=== PATIENT | male | born 1990 | race Caucasian/White ===

== ENCOUNTER 2017-04-01 21:35 | Emergency (ER) | payer MEDICAID, SELFPAY ==
[2017-04-01 21:43] VITALS: BP 145/85; PULSE 88; RESP 16; TEMP 36.4; O2SAT 100; BMI 37.4
--- NOTE | 2017-04-01 23:01 | HMH.EDGENADL ---
ED Disposition Clinical Impression: Conjunctivitis Qualifiers: Conjunctivitis type: acute Acute conjunctivitis type: unspecified Laterality: left Qualified Code(s): H10.32 - Unspecified acute conjunctivitis, left eye Disposition: Home, Self-Care Condition on Discharge: Good Instructions: DI for Conjunctivitis Additional Instructions: see dr stern [facility] Referrals: Tierra Correa PA [Primary Care Provider] - - Critical Care Critical Care Time: No Attestation: On 04/01/17, the high probability of a clinically significant, sudden or life threatening deterioration of the following system(s) required my full and direct attention, intervention and personal management. The time I documented below is in addition to time spent performing reported procedures but includes the following listed in this critical care notation. Medical Decision Making Vital Signs: 04/01/17 21:43 Temperature 97.6 F Temperature Source Temporal Artery Scan Pulse Rate [Brachial] 88 Respiratory Rate 16 Blood Pressure [Right Arm] 145/85 Blood Pressure Mean [Right Arm] 105 Blood Pressure Source [Right Arm] Automatic Cuff 02 Sat by Pulse Oximetry 100 Oxygen Delivery Method Room Air - Dylon Inquiry Pt receiving controlled substance: No General Adult HPI - General Chief complaint: PAIN Stated complaint: POSSIBLE PINK EYE Time Seen by Provider: 04/01/17 22:30 Mode of Arrival: Ambulatory Source of Information: Patient, Relative Limitations: No Limitations Description of Symptoms (Recalled from ER Triage Doc. by RN): PAIN IN EYE, H/A - History of Present Illness HPI narrative: pt with hx of possible conjunctivitis lt eye - treated and saw dr stern and now with same sx - no contact lens - Onset (ago): day(s) Location: eyes Severity: moderate - Related Data Home Medications Medication Instructions Recorded Confirmed No Known Home Medications [No 04/01/17 04/01/17 Known Home Medications] Allergies Allergy/AdvReac Type Severity Reaction Status Date / Time No Known Allergies Allergy Verified 04/01/17 21:53 [facility] History I have reviewed the patient's past medical history: Yes - *Social History Alcohol Intake: never - Psychiatric History Expresses thoughts of harming self/others: None Suicide Plan Description: No Plan ROS Obtained: Yes All systems reviewed & no additional complaints - Constitutional Denies fever(s) - Eyes Reports other (no contacts ), Denies change in vision, Denies discharge, Denies loss of vision - ENT Denies nasal discharge - Cardiovascular Denies chest pain - Respiratory Denies cough - Musculoskeletal Denies joint pain - Integumentary/Breasts Denies rash Physical Exam - General General appearance: alert, in no apparent distress - Head Head exam: atraumatic - Eye Eye exam: Present: PERRL, EOMI, conjunctival redness, conjunctival injection. Absent: scleral icterus - ENT ENT exam: Present: normal oropharynx - Respiratory Respiratory exam: Absent: respiratory distress - Cardiovascular Cardiovascular exam: Present: regular rate - Neurological Exam Neurological exam: Present: alert, oriented X3, CN II-XII intact - Psychiatric Psychiatric exam: Present: normal affect - Skin Skin exam: Present: warm - Lymphatic Lymphatic Findings: no adenopathy
--- NOTE | 2017-04-01 23:05 | ED_ITS ---
ED Disposition Clinical Impression: Conjunctivitis Qualifiers: Conjunctivitis type: acute Acute conjunctivitis type: unspecified Laterality: left Qualified Code(s): H10.32 - Unspecified acute conjunctivitis, left eye Disposition: Home, Self-Care Condition on Discharge: Good Instructions: DI for Conjunctivitis Additional Instructions: see dr stern [facility] Referrals: Tierra Correa PA [Primary Care Provider] - - Critical Care Critical Care Time: No Attestation: On 04/01/17, the high probability of a clinically significant, sudden or life threatening deterioration of the following system(s) required my full and direct attention, intervention and personal management. The time I documented below is in addition to time spent performing reported procedures but includes the following listed in this critical care notation. Medical Decision Making Vital Signs: 04/01/17 21:43 Temperature 97.6 F Temperature Source Temporal Artery Scan Pulse Rate [Brachial] 88 Respiratory Rate 16 Blood Pressure [Right Arm] 145/85 Blood Pressure Mean [Right Arm] 105 Blood Pressure Source [Right Arm] Automatic Cuff 02 Sat by Pulse Oximetry 100 Oxygen Delivery Method Room Air - Dylon Inquiry Pt receiving controlled substance: No General Adult HPI - General Chief complaint: PAIN Stated complaint: POSSIBLE PINK EYE Time Seen by Provider: 04/01/17 22:30 Mode of Arrival: Ambulatory Source of Information: Patient, Relative Limitations: No Limitations Description of Symptoms (Recalled from ER Triage Doc. by RN): PAIN IN EYE, H/A - History of Present Illness HPI narrative: pt with hx of possible conjunctivitis lt eye - treated and saw dr stern and now with same sx - no contact lens - Onset (ago): day(s) Location: eyes Severity: moderate - Related Data Home Medications Medication Instructions Recorded Confirmed No Known Home Medications [No 04/01/17 04/01/17 Known Home Medications] Allergies Allergy/AdvReac Type Severity Reaction Status Date / Time No Known Allergies Allergy Verified 04/01/17 21:53 [facility] History I have reviewed the patient's past medical history: Yes - *Social History Alcohol Intake: never - Psychiatric History Expresses thoughts of harming self/others: None Suicide Plan Description: No Plan ROS Obtained: Yes All systems reviewed & no additional complaints - Constitutional Denies fever(s) - Eyes Reports other (no contacts ), Denies change in vision, Denies discharge, Denies loss of vision - ENT Denies nasal discharge - Cardiovascular Denies chest pain - Respiratory Denies cough - Musculoskeletal Denies joint pain - Integumentary/Breasts Denies rash Physical Exam - General General appearance: alert, in no apparent distress - Head Head exam: atraumatic - Eye Eye exam: Present: PERRL, EOMI, conjunctival redness, conjunctival injection. Absent: scleral icterus - ENT ENT exam: Present: normal oropharynx - Respiratory Respiratory exam: Absent: respiratory distress - Cardiovascular Cardiovascular exam: Present: regular rate - Neurological Exam Neurological exam: Present: alert, oriented X3, CN II-XII intact - Psychiatric Psychiatric exam: Present:
== END 2017-04-01 23:19 | disposition home or self-care (01) ==
PROVIDERS: Emergency Provider Emergency Medicine; Family Provider Physician Assistant; PCP Physician Assistant
DX: H10.32 Unspecified acute conjunctivitis, left eye (principal)
CPT/HCPCS: 99282

== ENCOUNTER 2017-05-01 14:39 | Emergency (ER) | payer MEDICAID, SELFPAY ==
[2017-05-01 15:13] VITALS: BP 123/83; PULSE 96; RESP 20; TEMP 37.3; O2SAT 100; BMI 39.1
[2017-05-01 15:24] LABS: UTC Influenza A Antigen Negative (Negative); UTC Influenza B Antigen Positive (Negative)
--- NOTE | 2017-05-01 15:38 | HMH.EDUTC ---
[facility] [place] Disposition Clinical Impression: Influenza B Disposition: Home, Self-Care Condition on Discharge: Good Instructions: DI for Influenza -- Adult Additional Instructions: * Too late to start tamiflu. Most effective when started within 48 hours of symptoms onset. * Lots of rest * Increase fluids, water, gatorade, powerade, pedialyte if /toddler/child * Monitor Temp. Tylenol every 4 hours as needed no more then 5 times a day or 4000mg in 24 hours and/or ibuprofen every 6 hours as needed no more then 3200mg in 24 hours (as long as your primary care doctor has told you that it is ok to take both) for fever/aches/pain. ER if fever no less than 101 despite tylenol and Ibuprofen. * Follow up if fevers are worsening instead of continuing to improve. * OTC cold/flu/sinus medication is ok but pick one. Do not take multiple different ones as they have similar ingredients and you can overdose on cold medication. * You (or your child) are contagious until no fever, aches, chills x 24 hours without medication for symptoms. Referrals: Tierra Correa PA [Primary Care Provider] - (IMMEDIATELY for new or worsening symptoms, improvement followed by suddenly feeling worse OR no noticeable improvement over the next 48-72 hours. 911 for difficulty breathing ) Time of Disposition: 15:49 Medical Decision Making Vital Signs: 05/01/17 15:13 Temperature 99.1 F Temperature Source Temporal Artery Scan Pulse Rate [Right Brachial] 96 H Respiratory Rate 20 Blood Pressure [Right Arm] 123/83 Blood Pressure Mean [Right Arm] 96 Blood Pressure Source [Right Arm] Automatic Cuff Blood Pressure Position [Right Arm] Sitting 02 Sat by Pulse Oximetry 100 Oxygen Delivery Method Room Air - Lab Data Lab results reviewed: Yes: I reviewed the patient's lab results. Lab Results 05/01/17 15:13: Influenza Type A Ag Negative, Influenza Type B Ag Positive A - Dylon Inquiry Pt receiving controlled substance: No [facility] [place] HPI - General Stated complaint: runny nose head ache Time Seen by Provider: 05/01/17 15:38 Mode of Arrival: Ambulatory Source of Information: Patient Limitations: No Limitations Description of Symptoms (Recalled from Triage Doc. by RN): PT C/O FLU-LIKE SYMPTOMS HEENT Symptoms (Recalled from RN notes): No Resp Symptoms (Recalled from RN notes): Yes (FLU-LIKE SYMPTOMS) Skin Symptoms (Recalled from RN notes): No MS Symptoms (Recalled from RN notes): No Functional Status (Recalled from RN notes): N/A - History of Present Illness Provider Complaint: c/o sore throat primarily but then reports accompanied with bodyaches, chills, nonprod cough, rhinorrhea, nasal congestion for nearly one week . No known sick contacts. Hasn't taken or tried anything. Denies SOA, wheezing, difficulty breathing. - Related Data Home Medications Medication Instructions Recorded Confirmed No Known Home Medications [No 04/01/17 04/01/17 Known Home Medications] Allergies Allergy/AdvReac Type Severity Reaction Status Date / Time No Known Allergies Allergy Verified 04/01/17 21:53 - Worker's Comp Is this a Worker's Comp case?: No [facility] History I have reviewed the patient's past medical history: Yes (denies PMHx) Medical History: Denies:: Cancer, Diabetes Mellitus Type 1, Diabetes Mellitus Type 2, Hypertension, MRSA Other Surgeries: Yes: No Previous Surgery Amputation: No Fractures: No - *Social History Smoking Status: Current every day smoker Tobacco Type: cigarettes Alcohol Intake: never - Psychiatric History Expresses thoughts of harming self/others: None Suicide Plan Description: No Plan ROS Obtained: Yes Systems reviewed as appropriate & no additional complaints - Constitutional Constitutional: Reports as per HPI, Reports chills, Reports fatigue, Reports fever(s) (subjective, they seem better ), Denies poor appetite - Eyes Eyes: Denies eye discharge, Denies eye pain - ENT Ears, Nose, Mouth, and Throat: Repo
--- NOTE | 2017-05-01 15:47 | ED_ITS ---
[facility] [place] Clinical Impression: Influenza B Disposition: Home, Self-Care Condition on Discharge: Good Instructions: DI for Influenza -- Adult Additional Instructions: * Too late to start tamiflu. Most effective when started within 48 hours of symptoms onset. * Lots of rest * Increase fluids, water, gatorade, powerade, pedialyte if /toddler/child * Monitor Temp. Tylenol every 4 hours as needed no more then 5 times a day or 4000mg in 24 hours and/or ibuprofen every 6 hours as needed no more then 3200mg in 24 hours (as long as your primary care doctor has told you that it is ok to take both) for fever/aches/pain. ER if fever no less than 101 despite tylenol and Ibuprofen. * Follow up if fevers are worsening instead of continuing to improve. * OTC cold/flu/sinus medication is ok but pick one. Do not take multiple different ones as they have similar ingredients and you can overdose on cold medication. * You (or your child) are contagious until no fever, aches, chills x 24 hours without medication for symptoms. Referrals: Tierra Correa PA [Primary Care Provider] - (IMMEDIATELY for new or worsening symptoms, improvement followed by suddenly feeling worse OR no noticeable improvement over the next 48-72 hours. 911 for difficulty breathing ) Time of Disposition: 15:49 Medical Decision Making Vital Signs: 05/01/17 15:13 Temperature 99.1 F Temperature Source Temporal Artery Scan Pulse Rate [Right Brachial] 96 H Respiratory Rate 20 Blood Pressure [Right Arm] 123/83 Blood Pressure Mean [Right Arm] 96 Blood Pressure Source [Right Arm] Automatic Cuff Blood Pressure Position [Right Arm] Sitting 02 Sat by Pulse Oximetry 100 Oxygen Delivery Method Room Air - Lab Data Lab results reviewed: Yes: I reviewed the patient's lab results. Lab Results 05/01/17 15:13: Influenza Type A Ag Negative, Influenza Type B Ag Positive A - Dylon Inquiry Pt receiving controlled substance: No [facility] [place]PI - General Stated complaint: runny nose head ache Time Seen by Provider: 05/01/17 15:38 Mode of Arrival: Ambulatory Source of Information: Patient Limitations: No Limitations Description of Symptoms (Recalled from Triage Doc. by RN): PT C/O FLU-LIKE SYMPTOMS HEENT Symptoms (Recalled from RN notes): No Resp Symptoms (Recalled from RN notes): Yes (FLU-LIKE SYMPTOMS) Skin Symptoms (Recalled from RN notes): No MS Symptoms (Recalled from RN notes): No Functional Status (Recalled from RN notes): N/A - History of Present Illness Provider Complaint: c/o sore throat primarily but then reports accompanied with bodyaches, chills, nonprod cough, rhinorrhea, nasal congestion for nearly one week . No known sick contacts. Hasn't taken or tried anything. Denies SOA, wheezing, difficulty breathing. - Related Data Home Medications Medication Instructions Recorded Confirmed No Known Home Medications [No 04/01/17 04/01/17 Known Home Medications] Allergies Allergy/AdvReac Type Severity Reaction Status Date / Time No Known Allergies Allergy Verified 04/01/17 21:53 - Worker's Comp Is this a Worker's Comp case?: No [facility] History I have reviewed the patient's past medical history: Yes (denies PMHx) Medical History: Denies:: Cancer, Diabetes Mellitus Type 1, Diabetes Mellitus Type 2, Hypertension, MRSA Other Surgeries: Yes: No Previous Surgery Amputation: No
[2017-05-01 15:51] VITALS: BP 123/83; PULSE 96; RESP 20; TEMP 37.3; O2SAT 100
== END 2017-05-01 15:52 | disposition home or self-care (01) ==
PROVIDERS: Emergency Provider Nurse Practitioner Family; Family Provider Physician Assistant; PCP Physician Assistant
DX: J11.1 Influenza due to unidentified influenza virus with other respiratory manifestations (principal); F17.210 Nicotine dependence, cigarettes, uncomplicated
CPT/HCPCS: 87804; 99201

== ENCOUNTER → 2017-11-08 13:21 | Outpatient (CLI) | payer MEDICAID, SELFPAY ==
--- NOTE | 2017-11-08 13:23 | XR_ITS ---
EXAM: XR lumbar spine 2-3V HISTORY: ITS.REASON: pain ORDERING PHYSICIAN: Aliza Hays PATIENT AGE: 27 years COMPARISON: None FINDINGS: Normal alignment. No fracture or dislocation. No lytic or blastic change. No significant degenerative change. The disc spaces are preserved. There is degenerative disc disease at T12-L1 with endplate hypertrophic change IMPRESSION: 1. No acute finding. 2. Degenerative disc disease T12-L1
--- NOTE | 2017-11-08 13:23 | XR_ITS ---
EXAM: XR thoracic spine 3V HISTORY: ITS.REASON: pain Comparison: None FINDINGS: Normal alignment. No fracture or dislocation. No lytic or blastic change. No significant degenerative change. The disc spaces are preserved. There is slight loss of height anteriorly at T11 and T12 which appears chronic with mild degenerative disc disease at T10-11 and T11-T12 IMPRESSION: 1. No acute finding. 2. Mild wedging of T11 and T12 which may be chronic with degenerative disc disease.
== END ==
PROVIDERS: PCP Nurse Practitioner Family; Visit Provider Nurse Practitioner Family
DX: M54.5 Low back pain (principal); M54.6 Pain in thoracic spine
CPT/HCPCS: 72072; 72100

== ENCOUNTER → 2019-05-18 17:19 | Outpatient (CLI) | payer OTHER, SELFPAY ==
[2019-05-18 18:11] LABS: Basophils # 0.1 K/mm3 (0-0.2); Basophils % 0.7 % (0.1-2.0); Eosinophils # 0.2 K/mm3 (0.0-0.4); Eosinophils % 2.7 % (0.1-12.0); Hematocrit 47.9 % (42.0-52.0); Hemoglobin 15.8 g/dL (14.1-18.0); Lymphocytes # 2.4 K/mm3 (0.7-4.5); Lymphocytes % 35.4 % (10-50); Mean Corpuscular HGB Conc 32.9 g/dL (31.8-35.4); Mean Corpuscular Hemoglobin 28.6 pg (27.0-31.2); Mean Corpuscular Volume 86.9 fl (80-94); Mean Platelet Volume 8.6 fl (7.4-10.4); Monocytes # 0.3 K/mm3 (0.1-1.0); Neutrophils # 3.8 K/mm3 (1.8-7.8); Neutrophils % 56.3 % (37.0-80.0); Platelet Count 297 K/mm3 (142-424); Red Blood Count 5.51 M/mm3 (4.60-6.20); Red Cell Distribution Width 13.8 % (11.5-17.5); White Blood Count 6.7 K/mm3 (4.8-10.8)
[2019-05-18 18:43] LABS: Chloride 100 mmol/L (98-107); Sodium 142 mmol/L (136-145)
[2019-05-18 18:45] LABS: Blood Urea Nitrogen 12 mg/dl (9-20); Estimated Glomerular Filt Rate 135 ml/min (>60); GFR (African American) 164 ML/MIN (>60)
[2019-05-18 18:46] LABS: Alanine Aminotransferase 18 U/L (12-78); Albumin Level 4.9 g/dl (3.5-5.0); Albumin/Globulin Ratio 1.8 (1.1-1.8); Alkaline Phosphatase 62 U/L (38-126); Aspartate Amino Transferase 24 U/L (17-59); Bilirubin,Total 0.4 mg/dl (0.2-1.3); Calcium 10.2 mg/dl (8.4-10.2); Carbon Dioxide 27 mmol/L (22.0-30.0); Chol/HDL Ratio 3.6 (1-3.5); Cholesterol 170 mg/dl (140-200); Globulin 2.7 g/dL (1.3-3.2); Glucose 70 mg/dl (74-100); HDL Cholesterol 47 mg/dl (40-60); Total Protein,Serum 7.6 g/dl (6.3-8.2)
[2019-05-18 18:57] LABS: Direct LDL Cholesterol 79.23 mg/dL (100-129)
[2019-05-18 19:02] LABS: Triglycerides 424 mg/dl (30-150)
[2019-05-18 19:19] LABS: Thyroid Stimulating Hormone 1.43 uIU/mL (0.465-4.68)
[2019-05-18 19:46] LABS: Hemoglobin A1C 5.2 % (4.0-6.0)
== END ==
PROVIDERS: Visit Provider Physician Assistant
DX: E11.9 Type 2 diabetes mellitus without complications (principal)
CPT/HCPCS: 80053; 80061; 83036; 84436; 84443; 85025

== ENCOUNTER → 2019-05-25 12:36 | Outpatient (CLI) | payer OTHER, SELFPAY | PROVIDERS: PCP Physician Assistant; Visit Provider Physician Assistant | DX: R55 Syncope and collapse (principal) | CPT/HCPCS: 95816 ==

== ENCOUNTER → 2019-06-26 11:20 | Outpatient (CLI) | payer OTHER, SELFPAY | PROVIDERS: PCP Physician Assistant; Visit Provider Physician Assistant | DX: R40.0 Somnolence (principal); R06.83 Snoring; R53.83 Other fatigue | CPT/HCPCS: 95806 ==

== ENCOUNTER → 2019-07-16 08:59 | Outpatient (CLI) | payer OTHER, SELFPAY | PROVIDERS: PCP Physician Assistant; Visit Provider Internal Medicine Cardiovascular Disease | DX: R55 Syncope and collapse (principal) ==

== ENCOUNTER 2019-08-05 19:33 | Emergency (ER) | payer OTHER, SELFPAY ==
[2019-08-05 19:35] VITALS: BP 140/87; PULSE 83; RESP 21; TEMP 36.7; O2SAT 100; BMI 39.1
--- NOTE | 2019-08-05 19:37 | HMH.EDUTC ---
[facility] [place] Clinical Impression: Sprain of left foot Qualifiers: Encounter type: initial encounter Qualified Code(s): S93.602A - Unspecified sprain of left foot, initial encounter Disposition: Home, Self-Care Condition on Discharge: Good Instructions: DI for Foot Sprain Additional Instructions: Rest the extremity, apply ice for 15 minutes as tolerated three or four times per day, Wear the mer wrap for compression, Elevate the extremity as tolerated while you are resting. Take ibuprofen for pain. I sent in a prescription to your pharmacy. Follow up with Dr. Bar. I put in a referral but you need to call her office and schedule an appointment. Follow up with your regular doctor. GO TO THE ER FOR ANY WORSENING SYMPTOMS Prescriptions: Ibuprofen [Ibuprofen 600mg Tablet] 600 mg PO Q6HP PRN #30 tab PRN Reason: Mild Pain Transmission Status: Received by [id number] Referrals: Tierra Correa PA [Primary Care Provider] - Forms: Work/School Release Time of Disposition: 20:20 Medical Decision Making - Medical Records Medical records reviewed: No: I reviewed the patient's medical records. - Dylon Inquiry Pt receiving controlled substance: No Vital Signs: 08/05/19 19:35 08/05/19 20:25 Temperature 98.1 F 98.1 F Temperature Source Oral Oral Pulse Rate 83 Pulse Rate [Radial] 83 Respiratory Rate 21 21 Blood Pressure 140/87 Blood Pressure [Right Arm] 140/87 Blood Pressure Mean [Right Arm] 104 Blood Pressure Source Automatic Cuff Blood Pressure Source [Right Arm] Automatic Cuff Blood Pressure Position Sitting Blood Pressure Position [Right Arm] Sitting 02 Sat by Pulse Oximetry 100 Oxygen Delivery Method Room Air Room Air - Radiology Data #1 Image(s): Foot/Toes Image Reviewed: Yes I reviewed the patient's radiology image, Yes I have reviewed radiologist's interpretation Preliminary Findings: No Fracture Seen PROCEDURE: XR ANKLE LT MIN 3V CLINICAL INDICATION: injury Posttraumatic pain the COMPARISON: No exams were available for comparison FINDINGS: No fracture or dislocation. No lytic or blastic change. There is normal mineralization. The joint spaces are well-preserved. No significant degenerative/arthritic changes. No erosive changes evident. Other findings:None. IMPRESSION: No acute findings. Dictated by: Rashad Fry MD 08/06/2019 06:00 Electronically signed by Rashad Fry MD in [place] 08/06/2019 06:00 [facility] [place] HPI - General Stated complaint: AO fall injury to L ankle 08/04/190 Time Seen by Provider: 08/05/19 19:45 - History of Present Illness Provider Complaint: He states that last night at work he slipped in some disinfectant off the bottom of a biohazard bag and twisted his left ankle. He states that thru out today his foot and ankle began to hurt worse. He states that walking on the foot makes his pain worse. - Related Data Previous Rx's Medication Instructions Recorded Ibuprofen [Ibuprofen 600mg 600 mg PO Q6HP PRN #30 tab 08/05/19 Tablet] Allergies Allergy/AdvReac Type Severity Reaction Status Date / Time No Known Allergies Allergy Verified 05/21/19 10:47 [facility] History - Hepatitis A Screen Attestation statement:: This patient has been screened for Hepatitis A risk factors. I have reviewed the patient's past medical history: Yes Medical History: Reports:: Palpitations Denies:: Cancer, Diabetes Mellitus Type 1, Diabetes Mellitus Type 2, Hypertension, MRSA Other Medical History: Reports: Arthritis, Other Comment: Gout Other Surgeries: Yes: No Previous Surgery Amputation: No Fractures: No - Social History Smoking Status: Current some day smoker Tobacco Type: cigarettes # Packs/Day (cigarettes): 1 Alcohol Intake: never Alcohol Intake Frequency:: a few times a week Substance Use Type: denies use Occupational Status: employed Family Hx:: Cancer, Hypertension Comment: Mother-HTN ROS Obt
--- NOTE | 2019-08-05 19:47 | XR_ITS ---
PROCEDURE: XR ANKLE LT MIN 3V CLINICAL INDICATION: injury Posttraumatic pain the COMPARISON: No exams were available for comparison FINDINGS: No fracture or dislocation. No lytic or blastic change. There is normal mineralization. The joint spaces are well-preserved. No significant degenerative/arthritic changes. No erosive changes evident. Other findings:None. IMPRESSION: No acute findings. Dictated by: Rashad Fry MD 08/06/2019 06:00 Electronically signed by Rashad Fry MD in [place] 08/06/2019 06:00
[2019-08-05 20:25] VITALS: BP 140/87; PULSE 83; RESP 21; TEMP 36.7; O2SAT 100
== END 2019-08-05 20:26 | disposition home or self-care (01) ==
PROVIDERS: Emergency Provider Nurse Practitioner Family; PCP Physician Assistant
DX: S93.602A Unspecified sprain of left foot, initial encounter (principal); W01.0XXA Fall on same level from slipping, tripping and stumbling without subsequent striking against object, initial encounter; F17.210 Nicotine dependence, cigarettes, uncomplicated
CPT/HCPCS: 73610; 99201

== ENCOUNTER 2019-11-27 15:41 | Emergency (ER) | payer OTHER, SELFPAY ==
--- NOTE | 2019-11-27 15:52 | XR_ITS ---
PROCEDURE: XR ANKLE LT MIN 3V CLINICAL INDICATION: PAIN COMPARISON: CR Ankle L from 10/27/2018 FINDINGS: No fracture or dislocation IMPRESSION: No acute findings. Dictated by: Rashad Fry MD 11/27/2019 18:55 Rashad Fry MD in [place] 11/27/2019 18:55
[2019-11-27 16:16] VITALS: BP 133/91; PULSE 84; RESP 20; TEMP 36.6; O2SAT 99; BMI 39.1
--- NOTE | 2019-11-27 16:55 | HMH.EDUTC ---
[facility] [place] Clinical Impression: Left ankle strain Qualifiers: Encounter type: initial encounter Qualified Code(s): S96.912A - Strain of unspecified muscle and tendon at ankle and foot level, left foot, initial encounter Disposition: Home, Self-Care Condition on Discharge: Good Instructions: How To Perform RICE (Rest, Ice, Compress, Elevate), How to Apply an Zeb Wrap, Preventing the Spread of Coronavirus Discharge Instructions Additional Instructions: You was tested for COVID 19 and given handout with instructions for self Quarantine and Self isolation make sure to follow instructions Call back to the [facility] on Saturday or Saturday to see if your test results are back and the result *weight bearing as tolerated *RICE, Rest the extremity, Ice 15-20 minutes 3-4 times daily, Compress- wear the zeb wrap as discussed as much as possible to help reduce swelling and pain, Elevate the extremity when at rest *Zeb wrap is for support and help control swelling, use it except in the shower. Be sure that is not to tight but not to loose either *Elevate when resting *Ibuprofen every 6-8 hours as needed for pain an inflammation. If need something more can take Tylenol in between doses of Ibuprofen to help Immediately follow up with your family doctor for new or worsening of symptoms, or no noticeable improvement over the next 3-5 days Follow up with Family doctor if you continue to have pain in your ankle Call back to [facility] later today for the official reading of your xray Follow up with Dr Bar if your ankle pain continued Straight to ER if any life threatening symptoms Referrals: Tierra Correa PA [Primary Care Provider] - Forms: Work/School Release Time of Disposition: 17:07 Medical Decision Making - Dylon Inquiry Pt receiving controlled substance: No Dylon was queried for this patient: No Vital Signs: 11/27/19 16:16 Temperature 97.8 F Temperature Source Oral Pulse Rate [Right Brachial] 84 Respiratory Rate 20 Blood Pressure [Right Arm] 133/91 H Blood Pressure Mean [Right Arm] 105 Blood Pressure Source [Right Arm] Automatic Cuff Blood Pressure Position [Right Arm] Sitting 02 Sat by Pulse Oximetry 99 Oxygen Delivery Method Room Air Orders (Tests/Meds): ORDERS Category Date Time Status XR ankle LT min 3V Stat Exams 11/27/19 15:52 Taken Covid-19 Nasal PCR [facility] 11/27/19 16:21 Received - Radiology Data #1 Image(s): Ankle Image Reviewed: Yes I reviewed the patient's radiology image Preliminary Findings: No Fracture [place]en [facility] - General Stated complaint: AO fell 11/22/19 swollen L ankle/covid test Time Seen by Provider: 11/27/19 17:01 Mode of Arrival: Ambulatory Source of Information: Patient Limitations: No Limitations Description of Symptoms (Recalled from Triage Doc. by RN): PATIENT C/O LEFT ANKLE PAIN SINCE LAST WEEK. ALSO REQUESTING A COVID TEST FOR WORK, DENIES ANY SYMPTOMS HEENT Symptoms (Recalled from RN notes): No Resp Symptoms (Recalled from RN notes): No Skin Symptoms (Recalled from RN notes): No MS Symptoms (Recalled from RN notes): Yes Functional Status (Recalled from RN notes): WNL - History of Present Illness Provider Complaint: Patient states that he has been working alot on his feet and for the last week he has been having pain on and off in his left ankle denies known injury States that also he is starting a new job and wanting to get a COVID test before he can start - Related Data Allergies Allergy/AdvReac Type Severity Reaction Status Date / Time No Known Allergies Allergy Verified 05/21/19 10:47 - Worker's Comp Is this a Worker's Comp case?: No [facility] History - Hepatitis A Screen Drug use history?: No High risk sexual behaviors?: No History of sexually transmitted infection?: No Currently employed?: No Childcare worker?: No Do you have indoor plumbing?: Yes Do you have electricity?: Yes Attestation statement:: This patient has been screened f
[2019-11-27 17:20] VITALS: BP 133/91; PULSE 84; RESP 20; TEMP 36.6; O2SAT 99
[2019-11-29 09:19] LABS: Covid-19 Nasal PCR Sendout UK Not Detected
== END 2019-11-27 17:23 | disposition home or self-care (01) ==
PROVIDERS: Emergency Provider Nurse Practitioner; PCP Physician Assistant
DX: S96.912A Strain of unspecified muscle and tendon at ankle and foot level, left foot, initial encounter (principal); W01.0XXA Fall on same level from slipping, tripping and stumbling without subsequent striking against object, initial encounter; F17.210 Nicotine dependence, cigarettes, uncomplicated; Z03.818 Encounter for observation for suspected exposure to other biological agents ruled out
CPT/HCPCS: 73610; 99201; 99202; U0003

== ENCOUNTER 2019-11-28 20:17 | Emergency (ER) | payer OTHER, SELFPAY ==
[2019-11-28 20:30] VITALS: BP 129/97; PULSE 80; RESP 16; TEMP 36.8; O2SAT 100; BMI 39.1
--- NOTE | 2019-11-28 20:34 | HMH.EDUTC ---
[facility] [place] Disposition Clinical Impression: Ankle pain Qualifiers: Chronicity: unspecified Laterality: left Qualified Code(s): M25.572 - Pain in left ankle and joints of left foot Disposition: Home, Self-Care Condition on Discharge: Good Instructions: DI for Ankle Pain, How to Apply an Zeb Wrap Additional Instructions: You may purchase ankle brace at [facility] Continue to wear zeb wrap and if no improvement follow up with Family Doctor or Dr Bar if no improvement or any worsening of symptoms Straight to ER if any life threatening symptoms Return if needed Referrals: Tierra Correa PA [Primary Care Provider] - As needed Forms: Work/School Release Medical Decision Making - Dylon Inquiry Pt receiving controlled substance: No Dylon was queried for this patient: No Vital Signs: 11/28/19 20:30 Temperature 98.2 F Temperature Source Oral Pulse Rate [Right Brachial] 80 Respiratory Rate 16 Blood Pressure [Right Arm] 129/97 H Blood Pressure Mean [Right Arm] 107 Blood Pressure Source [Right Arm] Automatic Cuff Blood Pressure Position [Right Arm] Sitting 02 Sat by Pulse Oximetry 100 Oxygen Delivery Method Room Air [facility] [place] HPI - General Stated complaint: Pain Left ankle Time Seen by Provider: 11/28/19 20:34 Mode of Arrival: Ambulatory Source of Information: Patient Limitations: No Limitations Description of Symptoms (Recalled from Triage Doc. by RN): PATIENT C/O LEFT FOOT PAIN. WAS HERE LAST NIGHT FOR SAME COMPLAINT. REQUESTING WORK NOTE HEENT Symptoms (Recalled from RN notes): No Resp Symptoms (Recalled from RN notes): No Skin Symptoms (Recalled from RN notes): No MS Symptoms (Recalled from RN notes): Yes Functional Status (Recalled from RN notes): WNL - History of Present Illness Provider Complaint: Patient states that he was in [facility] last night for same complaint and had xrays done and no fracture. States that today he didnt go to work and his work note only covered yesterday so he came back in today to see if he could get a work note for today Denies new injury - Related Data Allergies Allergy/AdvReac Type Severity Reaction Status Date / Time No Known Allergies Allergy Verified 05/21/19 10:47 - Worker's Comp Is this a Worker's Comp case?: No [facility] History - Hepatitis A Screen Drug use history?: No High risk sexual behaviors?: No History of sexually transmitted infection?: No Currently employed?: No Childcare worker?: No Do you have indoor plumbing?: Yes Do you have electricity?: Yes Attestation statement:: This patient has been screened for Hepatitis A risk factors. I have reviewed the patient's past medical history: Yes Medical History: Reports:: Palpitations Denies:: Cancer, Diabetes Mellitus Type 1, Diabetes Mellitus Type 2, Hypertension, MRSA Other Medical History: Reports: Arthritis, Other Comment: Gout Other Surgeries: Yes: No Previous Surgery Amputation: No Fractures: No - Social History Smoking Status: Current every day smoker Tobacco Type: cigarettes # Packs/Day (cigarettes): 1 Alcohol Intake: never Alcohol Intake Frequency:: a few times a week Substance Use Type: denies use Occupational Status: other Housing: house Family Hx:: Cancer, Hypertension Comment: Mother-HTN ROS Obtained: Yes All systems reviewed & no additional complaints, Yes Systems reviewed as appropriate & no additional complaints - Constitutional Constitutional: Reports system reviewed and no additional complaints, except as docu - Eyes Eyes: Reports system reviewed and no additional complaints, except as docu - Gastrointestinal Gastrointestingal: Reports: system reviewed and no additional complaints, except as docu - Musculoskeletal Musculoskeletal: Reports system reviewed and no additional complaints, except as docu - Integumentary/Breasts Skin/Breast: Reports system reviewed and no additional complaints, except as docu - Allergic/Immunologic Comments: Pain in left ankle Physical Exam
[2019-11-28 20:50] VITALS: BP 129/97; PULSE 80; RESP 16; TEMP 36.8; O2SAT 100
== END 2019-11-28 20:52 | disposition home or self-care (01) ==
PROVIDERS: Emergency Provider Nurse Practitioner; PCP Physician Assistant
DX: M25.572 Pain in left ankle and joints of left foot (principal)
CPT/HCPCS: 99201

== ENCOUNTER 2019-12-30 02:41 | Emergency (ER) | payer OTHER, SELFPAY ==
[2019-12-30 02:50] VITALS: BP 116/80; PULSE 87; RESP 14; TEMP 37.1; O2SAT 100; BMI 49.4
--- NOTE | 2019-12-30 02:57 | XR_ITS ---
PROCEDURE: XR ANKLE LT MIN 3V CLINICAL INDICATION: edema Pain and swelling COMPARISON: CR Ankle L from 10/27/2018 CR XR ANKLE LT MIN 3V from 08/05/2019 CR XR ANKLE LT MIN 3V from 11/27/2019 FINDINGS: There is mild generalized soft tissue swelling. No bony or joint abnormality evident. On the mortise view, there is a small hyperdensity along the lateral aspect of the heel which could represent a foreign body either upon or within the skin. This measures approximately 2 mm. IMPRESSION: Soft tissue swelling. No acute bony findings. Small density along the lateral aspect of the heel which could be a foreign body either upon or within the skin. Dictated by: Rashad Fry MD 12/30/2019 04:58 Rashad Fry MD in [place] 12/30/2019 04:58
--- NOTE | 2019-12-30 03:04 | HMH.EDLOEX ---
ED Disposition Clinical Impression: Ankle sprain and strain Disposition: Home, Self-Care Condition on Discharge: Good Instructions: Sprain Additional Instructions: call podiatry for follow up Referrals: Tierra Correa PA [Primary Care Provider] - - Critical Care Critical Care Time: No Attestation: On 12/30/19, the high probability of a clinically significant, sudden or life threatening deterioration of the following system(s) required my full and direct attention, intervention and personal management. The time I documented below is in addition to time spent performing reported procedures but includes the following listed in this critical care notation. Medical Decision Making - Medical Records Medical records reviewed: Yes: I reviewed the patient's medical records. - Dylon Inquiry Pt receiving controlled substance: No Vital Signs: 12/30/19 02:50 Temperature 98.7 F Temperature Source Oral Pulse Rate [Right] 87 Respiratory Rate 14 Blood Pressure [Right Arm] 116/80 Blood Pressure Mean [Right Arm] 92 Blood Pressure Source [Right Arm] Automatic Cuff Blood Pressure Position [Right Arm] Sitting 02 Sat by Pulse Oximetry 100 Oxygen Delivery Method Room Air - Lab Data Lab results reviewed: Yes: I reviewed the patient's lab results. Orders (Tests/Meds): ED MEDICATIONS Discontinued Medications Generic Name Dose Route Start Last Admin Trade Name Freq PRN Reason Stop Dose Admin Acetaminophen/Codeine Phosphate 1 parish 12/30/19 02:57 Acetaminophen 300mg W/Codeine 30mg Take Home Pack (6) PO 12/30/19 02:58 ONCE ONE ORDERS Category Date Time Status Ankle XR - Left minimum 3 Views [XR ankle LT min 3V] Exams 12/30/19 02:57 Taken Stat - Radiology Data #1 Image(s): Ankle Image Reviewed: Yes I reviewed the patient's radiology image Preliminary Findings: No Fracture Seen Lower Extremity Injury HPI - General Chief Complaint: Extremity Injury, Lower Stated Complaint: left foot swollen and painful Time Seen by Provider: 12/30/19 03:05 Mode of Arrival: Ambulatory Source of Information: Patient, Spouse, Medical Record Limitations: No Limitations Description of Symptoms (Recalled from ER Triage Doc. by RN): Pt has pain and swelling to left ankle no known injury - History of Present Illness HPI Narrative: swelling to lt ankle w/o trauma MD complaint: ankle injury Onset (ago): day(s) Injury: Left: ankle Type of Injury: unknown Place: home Severity: moderate Context: walking Associated symptoms: able to partially bear weight Other symptoms: none - Related Data Allergies Allergy/AdvReac Type Severity Reaction Status Date / Time No Known Allergies Allergy Verified 05/21/19 10:47 [facility] History - Hepatitis A Screen Drug use history?: No High risk sexual behaviors?: No History of sexually transmitted infection?: No Currently employed?: No Childcare worker?: No Do you have indoor plumbing?: Yes Do you have electricity?: Yes Attestation statement:: This patient has been screened for Hepatitis A risk factors. I have reviewed the patient's past medical history: Yes Medical History: Reports:: Palpitations Denies:: Cancer, Diabetes Mellitus Type 1, Diabetes Mellitus Type 2, Hypertension, MRSA Other Medical History: Reports: Arthritis, Other Comment: Gout Other Surgeries: Yes: No Previous Surgery Amputation: No Fractures: No - Social History Smoking Status: Light tobacco smoker Tobacco Type: smokeless tobacco # Packs/Day (cigarettes): 1 Alcohol Intake: never Alcohol Intake Frequency:: a few times a week Substance Use Type: denies use Occupational Status: employed Housing: house Family Hx:: Cancer, Hypertension Comment: Mother-HTN ROS Obtained: Yes All systems reviewed & no additional complaints - Constitutional Constitutional: Denies fever(s) - Eyes Eyes: Denies change in vision - ENT Ears, Nose, Mouth, and Throat: Denies sore throat
[2019-12-30 03:17] VITALS: BP 122/78; PULSE 84; RESP 16; TEMP 37.1; O2SAT 100
== END 2019-12-30 03:19 | disposition home or self-care (01) ==
PROVIDERS: Emergency Provider Emergency Medicine; PCP Physician Assistant
DX: S93.402A Sprain of unspecified ligament of left ankle, initial encounter (principal); X50.1XXA Overexertion from prolonged static or awkward postures, initial encounter; F17.290 Nicotine dependence, other tobacco product, uncomplicated
CPT/HCPCS: 73610; 99282

== ENCOUNTER → 2019-12-30 19:36 | Outpatient (CLI) | payer OTHER, SELFPAY ==
[2019-12-30 20:19] LABS: Uric Acid 10.3 mg/dl (3.5-8.5)
== END ==
PROVIDERS: Visit Provider Nurse Practitioner Family
DX: M10.9 Gout, unspecified (principal)
CPT/HCPCS: 84550

== ENCOUNTER 2020-01-12 18:02 | Emergency (ER) | payer OTHER, SELFPAY ==
[2020-01-12 18:03] VITALS: BP 112/85; PULSE 99; RESP 16; TEMP 37.4; O2SAT 97; BMI 42.0
--- NOTE | 2020-01-12 18:33 | HMH.EDUTC ---
[facility] [place] Clinical Impression: Exposure to COVID-19 virus Disposition: Home, Self-Care Condition on Discharge: Good Instructions: Preventing the Spread of Coronavirus Discharge Instructions Additional Instructions: Drink plenty of fluids. Take tylenol for pain or fever. Follow up with your regular doctor. GO TO THE ER FOR ANY WORSENING SYMPTOMS FOLLOW THE DIRECTIONS ON THE COVID-19 HAND OUT THAT WE GAVE YOU REGARDING SELF-ISOLATION UNTIL YOU KNOW YOUR COVID-19 RESULTS Referrals: Tierra Correa PA [Primary Care Provider] - Forms: Work/School Release Time of Disposition: 18:38 Medical Decision Making - Medical Records Medical records reviewed: No: I reviewed the patient's medical records. - Dylon Inquiry Pt receiving controlled substance: No Vital Signs: 01/12/20 18:03 01/12/20 18:53 Temperature 99.4 F 99.4 F Temperature Source Oral Oral Pulse Rate 99 H Pulse Rate [Left Radial] 99 H Respiratory Rate 16 16 Blood Pressure 112/85 Blood Pressure [Right Arm] 112/85 Blood Pressure Mean [Right Arm] 94 Blood Pressure Source Automatic Cuff Blood Pressure Source [Right Arm] Automatic Cuff Blood Pressure Position Sitting Blood Pressure Position [Right Arm] Sitting 02 Sat by Pulse Oximetry 97 Oxygen Delivery Method Room Air Room Air Orders (Tests/Meds): ORDERS Category Date Time Status Covid-19 Nasal PCR ([facility]) Routine Lab 01/12/20 18:25 Received [facility] [place] HPI - General Stated complaint: possible covid exposure Time Seen by Provider: 01/12/20 18:33 - History of Present Illness Provider Complaint: He states that he may have been exposed to covid-19 from his mother in law. He denies any symptoms at this time. - Related Data Previous Rx's Medication Instructions Recorded allopurinol 100 mg tablet 100 mg PO DAILY #90 tab 01/04/20 colchicine 0.6 mg capsule 0.6 mg PO DAILY PRN #30 cap 01/04/20 methylprednisolone 4 mg tablets in 4 mg PO PER PKG DIR #21 tab 01/04/20 a dose pack Allergies Allergy/AdvReac Type Severity Reaction Status Date / Time No Known Allergies Allergy Verified 01/04/20 08:26 [facility] History - Hepatitis A Screen Attestation statement:: This patient has been screened for Hepatitis A risk factors. I have reviewed the patient's past medical history: Yes Medical History: Reports:: Gastroesophageal Reflux Disease(GERD), Palpitations Denies:: Cancer, Diabetes Mellitus Type 1, Diabetes Mellitus Type 2, Hypertension, MRSA Other Medical History: Reports: Arthritis, Other Comment: Gout Other Surgeries: Yes: No Previous Surgery Amputation: No Fractures: No - Social History Smoking Status: Light tobacco smoker Tobacco Type: smokeless tobacco # Packs/Day (cigarettes): 1 Alcohol Intake: current Alcohol Intake Frequency:: a few times a month Substance Use Type: denies use Occupational Status: employed Housing: house Family Hx:: Cancer, Hypertension Comment: Mother-HTN ROS Obtained: Yes All systems reviewed & no additional complaints - Constitutional Constitutional: Reports system reviewed and no additional complaints, except as docu - Eyes Eyes: Reports system reviewed and no additional complaints, except as docu - ENT Ears, Nose, Mouth, and Throat: Reports system reviewed and no additional complaints, except as docu - Cardiovascular Cardiovascular: Reports system reviewed and no additional complaints, except as docu - Respiratory Respiratory: Yes system reviewed and no additional complaints, except as docu - Gastrointestinal Gastrointestingal: Reports: system reviewed and no additional complaints, except as docu Physical Exam - General General appearance: alert, in no apparent distress - Head Head exam: atraumatic, normocephalic, normal inspection - Eye Eye exam: Present: normal appearance, PERRL, EOMI - ENT ENT exam: Present: normal exam, normal oropharynx, mucous membranes moist, TM's normal bilat
[2020-01-12 18:53] VITALS: BP 112/85; PULSE 99; RESP 16; TEMP 37.4; O2SAT 97
== END 2020-01-12 18:54 | disposition home or self-care (01) ==
PROVIDERS: Emergency Provider Nurse Practitioner Family; PCP Physician Assistant
DX: Z20.828 Contact with and (suspected) exposure to other viral communicable diseases (principal); K21.9 Gastro-esophageal reflux disease without esophagitis; F17.290 Nicotine dependence, other tobacco product, uncomplicated; R00.2 Palpitations
CPT/HCPCS: 99201; U0003

== ENCOUNTER → 2020-02-03 15:54 | Outpatient (CLI) | payer OTHER, SELFPAY ==
[2020-02-03 16:59] LABS: Alanine Aminotransferase 16 U/L (12-78); Albumin Level 4.3 g/dl (3.5-5.0); Albumin/Globulin Ratio 1.7 (1.1-1.8); Alkaline Phosphatase 68 U/L (38-126); Anion Gap 14.1 mEq/L (5-15); Aspartate Amino Transferase 20 U/L (17-59); Bilirubin,Total 0.6 mg/dl (0.2-1.3); Blood Urea Nitrogen 13 mg/dl (9-20); Calcium 9.9 mg/dl (8.4-10.2); Carbon Dioxide 24 mmol/L (22.0-30.0); Chloride 105 mmol/L (98-107); Chol/HDL Ratio 2.9 (1-3.5); Cholesterol 149 mg/dl (140-200); Estimated Glomerular Filt Rate 135 ml/min (>60); GFR (African American) 164 ML/MIN (>60); Globulin 2.5 g/dL (1.3-3.2); Glucose 101 mg/dl (74-100); HDL Cholesterol 51 mg/dl (40-60); Potassium 4.1 mmoL/L (3.5-5.1); Sodium 139 mmol/L (136-145); Total Protein,Serum 6.8 g/dl (6.3-8.2); Triglycerides 146 mg/dl (30-150); VLDL Cholesterol 29 mg/dL (0-40)
[2020-02-03 17:10] LABS: C-Reactive Protein 28.1 mg/L (0-4); Direct LDL Cholesterol 82.61 mg/dL (100-129)
[2020-02-03 17:14] LABS: Basophils % 0.3 % (0.1-2.0); Eosinophils % 0.4 % (0.1-12.0); Hematocrit 43.8 % (42.0-52.0); Hemoglobin 13.7 g/dL (14.1-18.0); Lymphocytes # 1.8 K/mm3 (0.7-4.5); Lymphocytes % 17.9 % (10-50); Mean Corpuscular HGB Conc 31.4 g/dL (31.8-35.4); Mean Corpuscular Hemoglobin 27.9 pg (27.0-31.2); Mean Corpuscular Volume 88.9 fl (80-94); Monocytes # 0.5 K/mm3 (0.1-1.0); Monocytes % 5.5 % (1.7-9.3); Neutrophils # 7.4 K/mm3 (1.8-7.8); Neutrophils % 75.9 % (37.0-80.0); Platelet Count 283 K/mm3 (142-424); Red Blood Count 4.92 M/mm3 (4.60-6.20); Red Cell Distribution Width 13.6 % (11.5-17.5); White Blood Count 9.8 K/mm3 (4.8-10.8)
[2020-02-03 17:15] LABS: T4 (Thyroxine) 7.2 ug/dl (5.53-11.0)
[2020-02-03 17:29] LABS: Thyroid Stimulating Hormone 1.63 uIU/mL (0.465-4.68)
[2020-02-03 22:18] LABS: Erythrocyte Sedimentation Rate 11 mm/hr (0-15)
[2020-02-03 22:53] LABS: Hemoglobin A1C 5.1 % (4.0-6.0)
== END ==
PROVIDERS: Visit Provider Physician Assistant
DX: M25.572 Pain in left ankle and joints of left foot (principal); R73.9 Hyperglycemia, unspecified; R79.82 Elevated C-reactive protein (CRP)
CPT/HCPCS: 80053; 80061; 83036; 84436; 84443; 84550; 85025; 85651; 86140

== ENCOUNTER 2020-03-10 10:08 | Emergency (ER) | payer OTHER, SELFPAY ==
[2020-03-10 10:10] VITALS: BP 124/77; PULSE 63; RESP 19; TEMP 36.8; O2SAT 99; BMI 39.4
--- NOTE | 2020-03-10 10:28 | HMH.EDUTC ---
[facility] [place]ression: Encounter for laboratory testing for COVID-19 virus Disposition: Home, Self-Care Condition on Discharge: Good Instructions: DI for COVID-19 (Suspected or Confirmed ), COVID-19: Testing and Tracing, COVID-19 Viral Test, Preventing the Spread of Coronavirus Discharge Instructions Additional Instructions: *Monitor Temp, Over the counter Motrin or Tylenol as directed/as needed Tylenol every 4 hours and Motrin every 6 hours (as long as your family doctor has told you that you can take it) for fever or pain. and straight to ER if unable to lower temp less than 101.0 after medication given Follow up IMMEDIATELY for new or worsening symptoms or no Noticeable improvement over the next 48-72 hours. 911 for difficulty breathing or swallowing You were tested for today for COVID19 your test result should be back in the next 24-48 hours, you may call to the [facility] to see if your test results are back in the next 48 hours [phone] [facility] hours are 9am-9pm You was given a handout with instructions for Self Quarantine and Self isolation for while you wait on test results and what to do if they are positive If you are positive the Health Dept will be contacting you also Referrals: Tierra Correa PA [Primary Care Provider] - As needed Forms: Work/School Release Time of Disposition: 10:30 Medical Decision Making - Dylon Inquiry Pt receiving controlled substance: No Dylon was queried for this patient: No Vital Signs: 03/10/20 10:10 Temperature 98.2 F Temperature Source Oral Pulse Rate [Right Brachial] 63 Respiratory Rate 19 Blood Pressure [Right Arm] 124/77 Blood Pressure Mean [Right Arm] 92 Blood Pressure Source [Right Arm] Automatic Cuff Blood Pressure Position [Right Arm] Sitting 02 Sat by Pulse Oximetry 99 Oxygen Delivery Method Room Air [facility] [place] - General Stated complaint: possible covid exposure Time Seen by Provider: 03/10/20 10:28 Mode of Arrival: Ambulatory Source of Information: Patient Limitations: No Limitations Description of Symptoms (Recalled from Triage Doc. by RN): PATIENT REQUESTING COVID TEST. 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[facility] and state that his boss told him that he may have been exposed to COVID and wanted him to come in and get tested State that he is not having any symptoms but needed tested for work - Related Data Previous Rx's Medication Instructions Recorded colchicine 0.6 mg capsule 0.6 mg PO DAILY PRN #30 cap 03/01/20 indomethacin 25 mg capsule 25 mg PO TID PRN 30 Days #90 cap 03/01/20 Allergies Allergy/AdvReac Type Severity Reaction Status Date / Time allopurinol AdvReac Mild chest pain Verified 03/01/20 16:04 - Worker's Comp Is this a Worker's Comp case?: No [facility] History - Hepatitis A Screen Drug use history?: No High risk sexual behaviors?: No History of sexually transmitted infection?: No Currently employed?: No Childcare worker?: No Do you have indoor plumbing?: Yes Do you have electricity?: Yes Attestation statement:: This patient has been screened for Hepatitis A risk factors. I have reviewed the patient's past medical history: Yes Medical History: Reports:: Gastroesophageal Reflux Disease(GERD), Palpitations Denies:: Cancer, Diabetes Mellitus Type 1, Diabetes Mellitus Type 2, Hypertension, MRSA Other Medical History: Reports: Arthritis, Other Comment: Gout Other Surgeries: Yes: No Previous Surgery Amputation: No Fractures: No - Social History Smoking Status: Light tobacco smoker Tobacco Type: smokeless tobacco # Packs/Day (cigarettes): 1 Alcohol Intake: never Alcohol Intake Frequency:: a few t
[2020-03-10 10:37] VITALS: BP 124/77; PULSE 63; RESP 19; TEMP 36.8; O2SAT 99
== END 2020-03-10 10:40 | disposition home or self-care (01) ==
PROVIDERS: Emergency Provider Nurse Practitioner; PCP Physician Assistant
DX: Z20.828 Contact with and (suspected) exposure to other viral communicable diseases (principal); R00.2 Palpitations; K21.9 Gastro-esophageal reflux disease without esophagitis; F17.290 Nicotine dependence, other tobacco product, uncomplicated; Z88.0 Allergy status to penicillin
CPT/HCPCS: 99201; U0003

== ENCOUNTER 2020-03-28 13:33 | Emergency (ER) | payer OTHER, SELFPAY ==
[2020-03-28 14:05] VITALS: BP 142/82; PULSE 83; RESP 18; TEMP 36.8; O2SAT 98; BMI 39.1
--- NOTE | 2020-03-28 14:17 | HMH.EDUTC ---
[facility] [place] Dis[place] Clinical Impression: Encounter for laboratory testing for COVID-19 virus Disposition: Home, Self-Care Condition on Discharge: Good Instructions: DI for Nausea -- Adult, Diarrhea, Dicyclomine, Coronavirus Disease 2019, DI for COVID-19 (Suspected or Confirmed ) Additional Instructions: *Monitor Temp, Over the counter Motrin or Tylenol as directed/as needed Tylenol every 4 hours and Motrin every 6 hours (as long as your family doctor has told you that you can take it) for fever or pain. and straight to ER if unable to lower temp less than 101.0 after medication given ? Avoid fruit juices, as these do not replace minerals and can actually increase diarrhea. ? Children and adults can use sports drinks to replenish electrolytes. Younger children and infants should use products formulated for children, like oral rehydration solutions. ? Eat food in small amounts and let your stomach recover. ? Get lots of rest. You may feel tired or weak. ? No greasy or fried foods for the next 24-48 hours BRAT diet Bananas Rice Apples and [place] ? Make sure to drink plenty of liquids ? Return if needed ? Straight to ER if any life threatening symptoms ? Zofran as prescribed ? Follow up with family doctor in the next 48-72 hours if no improvement or any worsening of symptoms Follow up IMMEDIATELY for new or worsening symptoms or no Noticeable improvement over the next 48-72 hours. 911 for difficulty breathing or swallowing You were tested for today for COVID19 your test result should be back in the next 24-48 hours, you may call to the [facility] to see if your test results are back in the next 48 hours [phone] [facility] hours are 9am-9pm You was given a handout with instructions for Self Quarantine and Self isolation for while you wait on test results and what to do if they are positive If you are positive the Health Dept will be contacting you also Prescriptions: Dicyclomine HCl [Bentyl 10mg capsule] 10 mg PO TID PRN #15 cap PRN Reason: Cramping [facility] Status[id number] Ondansetron [Zofran 4mg ODT] 4 mg PO TIDP PRN #6 tab PRN Reason: Nausea Transmission Status: [facility] Referrals: Tierra Correa PA [Primary Care Provider] - As needed Forms: Work/School Release Time of Disposition: 14:22 Medical Decision Making - Dylon Inquiry Pt receiving controlled substance: No Dylon was queried for this patient: No Vital Signs: 03/28/20 14:05 Temperature 98.2 F Temperature Source Oral Pulse Rate [Right Brachial] 83 Respiratory Rate 18 Blood Pressure [Right Arm] 142/82 H Blood Pressure Mean [Right Arm] 102 Blood Pressure Source [Right Arm] Automatic Cuff Blood Pressure Position [Right Arm] Sitting 02 Sat by Pulse Oximetry 98 Oxygen Delivery Method Room Air Orders (Tests/Meds): ORDERS Category Date Time Status Covid-19 Nasal PCR ([facility]) Routine Lab 03/28/20 13:46 Ordered [facility] [place] HPI - General Stated complaint: sore throat,cough,abd pain, wants covid test Time Seen by Provider: 03/28/20 14:17 Mode of Arrival: Ambulatory Source of Information: Patient Limitations: No Limitations Description of Symptoms (Recalled from Triage Doc. by RN): PATIENT C/O ABDOMINAL CRAMPING AND DIARRHEA X 2 DAYS. REQUESTING A COVID TEST HEENT Symptoms (Recalled from RN notes): No Resp Symptoms (Recalled from RN notes): No Skin Symptoms (Recalled from RN notes): No MS Symptoms (Recalled from RN notes): No Functional Status (Recalled from RN notes): WNL - History of Present Illness Provider Complaint: Patient states that he has been having some abdominal cramping upset stomach and diarrhea for several days and his boss told him that several people at work has tested positive for COVID and he needed to get checked States that due to diarrhea he came in to get checked Denies cramping or diarrhea at this time - Related Data Previous Rx's Medication Instructions Recorded co
[2020-03-28 14:36] VITALS: BP 142/82; PULSE 83; RESP 18; TEMP 36.8; O2SAT 98
== END 2020-03-28 14:37 | disposition home or self-care (01) ==
PROVIDERS: Emergency Provider Nurse Practitioner; PCP Physician Assistant
DX: Z20.822 Contact with and (suspected) exposure to COVID-19 (principal); K21.9 Gastro-esophageal reflux disease without esophagitis; F17.290 Nicotine dependence, other tobacco product, uncomplicated
CPT/HCPCS: 99202; G0463; U0003

== ENCOUNTER 2020-04-09 18:57 | Emergency (ER) | payer OTHER, SELFPAY ==
[2020-04-09 18:58] VITALS: BP 112/83; PULSE 59; RESP 16; TEMP 36.8; O2SAT 99; BMI 38.0
--- NOTE | 2020-04-09 19:16 | XR_ITS ---
PROCEDURE: XR HAND LT MIN 3V Referring Doctor: Pato Gonzalez Patient Age:30Y CLINICAL INDICATION: lac Laceration at 2nd digit near PIP joint. COMPARISON: No exams were available for comparison TECHNIQUE: 3 View AP, Oblique, Lateral FINDINGS: The osseous structures of the left hand appear intact. No fracture but no dislocation. No radiopaque foreign body. Particular attention is directed towards the 2nd digit PIP joint region question perhaps some very subtle soft tissue irregularity-equivocal, very subtle but no significant findings otherwise. No radiopaque foreign body nor or prominent soft tissue disruption.. There is normal mineralizatio of osseous elements n. The joint spaces are well-preserved. No significant degenerative/arthritic changes. No erosive changes evident. . Included left wrist unremarkable. Metacarpals intact. Fingers intact.. IMPRESSION: Left hand-no fracture. No acute osseous findings. No radiopaque foreign body Dictated by: Torres Crowley MD 04/10/2020 11:43 Torres Crowley MD in [place] 04/10/2020 11:43
--- NOTE | 2020-04-09 19:24 | HMH.EDWNDL ---
ED Disposition Clinical Impression: Finger laceration Qualifiers: Encounter type: initial encounter Finger: index finger Damage to nail status: without damage Foreign body presence: without foreign body Laterality: left Qualified Code(s): S61.211A - Laceration without foreign body of left index finger without damage to nail, initial encounter Disposition: Home, Self-Care Condition on Discharge: Good Instructions: DI for Laceration Repair Additional Instructions: suture removal in 1 week Prescriptions: cephALEXin [Cephalexin 500mg Tab] 500 mg PO Q6H #7 tab Transmission Status: Pending to [id number] Referrals: Tierra Correa PA [Primary Care Provider] - - Critical Care Critical Care Time: No Attestation: On , the high probability of a clinically significant, sudden or life threatening deterioration of the following system(s) required my full and direct attention, intervention and personal management. The time I documented below is in addition to time spent performing reported procedures but includes the following listed in this critical care notation. Medical Decision Making - Medical Records Medical records reviewed: Yes: I reviewed the patient's medical records. - Dylon Inquiry Pt receiving controlled substance: No Vital Signs: 04/09/20 18:58 Temperature 98.2 F Temperature Source Oral Pulse Rate [Left Radial] 59 L Respiratory Rate 16 Blood Pressure [Right Arm] 112/83 Blood Pressure Mean [Right Arm] 92 Blood Pressure Source [Right Arm] Automatic Cuff Blood Pressure Position [Right Arm] Sitting 02 Sat by Pulse Oximetry 99 Oxygen Delivery Method Room Air Orders (Tests/Meds): ED MEDICATIONS Discontinued Medications Generic Name Dose Route Start Last Admin Trade Name Freq PRN Reason Stop Dose Admin Cephalexin HCl 500 mg 04/09/20 19:47 Cephalexin 500mg Capsule PO 04/09/20 19:48 ONCE ONE Protocol Tetanus/Reduced Diphtheria/Acell Pertussis 0.5 ml 04/09/20 19:16 Tet/Diphth/Pert-Adult 0.5ml Syringe IM 04/09/20 19:17 .ONCE ONE ORDERS Category Date Time Status Hand XR left minimum 3 views [XR hand LT min 3V] Stat Exams 04/09/20 19:16 Taken Wound/Laceration HPI - General Chief Complaint: Wound/Laceration Stated Complaint: AO 6:30 cut index finger Time Seen by Provider: 04/09/20 19:00 Mode of Arrival: Ambulatory Limitations: No Limitations Description of Symptoms (Recalled from ER Triage Doc. by RN): pt was cooking dinner and cutting chicken when the knife slipped and he lacrated his left index finger and left thumb. - History of Present Illness HPI narrative: 30 y/o male presenting 30 min after accidental cut to left nondominant index finger with pocket knife while cutting chicken. 0/10 pain. no other injuries. moderate active bleeding on arrival. no prehospital medication taken. - Related Data Previous Rx's Medication Instructions Recorded colchicine 0.6 mg capsule 0.6 mg PO DAILY PRN #30 cap 03/01/20 indomethacin 25 mg capsule 25 mg PO TID PRN 30 Days #90 cap 03/01/20 Dicyclomine HCl [Bentyl 10mg 10 mg PO TID PRN #15 cap 03/28/20 capsule] Ondansetron [Zofran 4mg ODT] 4 mg PO TIDP PRN #6 tab 03/28/20 cephALEXin [Cephalexin 500mg Tab] 500 mg PO Q6H #7 tab 04/09/20 Allergies Allergy/AdvReac Type Severity Reaction Status Date / Time allopurinol AdvReac Mild chest pain Verified 03/01/20 16:[address] [facility] History - Hepatitis A Screen Drug use history?: No High risk sexual behaviors?: No History of sexually transmitted infection?: No Currently employed?: No Childcare worker?: No Do you have indoor plumbing?: Yes Do you have electricity?: Yes Attestation statement:: This patient has been screened for Hepatitis A risk factors. I have reviewed the patient's past medical history: Yes Medical History: Reports:: Gastroesophageal Reflux Disease(GERD), Palpitations Denies:: Cancer, Diabetes Mellitus Type 1, Diabete
[2020-04-09 19:57] VITALS: BP 119/87; PULSE 65; RESP 16; TEMP 36.8; O2SAT 98
== END 2020-04-09 20:00 | disposition home or self-care (01) ==
PROVIDERS: Emergency Provider Physician Assistant; PCP Physician Assistant
DX: S61.211A Laceration without foreign body of left index finger without damage to nail, initial encounter (principal); W26.0XXA Contact with knife, initial encounter; Y92.010 Kitchen of single-family (private) house as the place of occurrence of the external cause; K21.9 Gastro-esophageal reflux disease without esophagitis; F17.210 Nicotine dependence, cigarettes, uncomplicated; Z23 Encounter for immunization
CPT/HCPCS: 12001; 73130; 90715; 99282

== ENCOUNTER 2020-08-12 23:40 | Emergency (ER) | payer OTHER, SELFPAY ==
[2020-08-12 23:50] VITALS: BP 128/95; PULSE 111; RESP 17; TEMP 36.2; O2SAT 98; BMI 38.0
--- NOTE | 2020-08-12 23:51 | HMH.EDGENADL ---
ED Disposition Clinical Impression: Lower back pain Qualifiers: Chronicity: acute Back pain laterality: bilateral Sciatica presence: without sciatica Qualified Code(s): M54.5 - Low back pain Disposition: Home, Self-Care Condition on Discharge: Good Instructions: DI for Low Back Pain Additional Instructions: Follow-up with orthopedics for chronic back pain and return to the ED for any new or worsening symptoms. Prescriptions: Cyclobenzaprine HCl [Flexeril 10mg tablet] 10 mg PO TID PRN 4 Days #12 tab PRN Reason: Muscle Spasm Transmission Status: Pending to [id number] Referrals: Tierra Correa PA [Primary Care Provider] - Lamar Boles MD [Physician] - Time of Disposition: 01:55 - Critical Care Critical Care Time: No Attestation: On 08/12/20, the high probability of a clinically significant, sudden or life threatening deterioration of the following system(s) required my full and direct attention, intervention and personal management. The time I documented below is in addition to time spent performing reported procedures but includes the following listed in this critical care notation. Medical Decision Making - Medical Records Medical records reviewed: Yes: I reviewed the patient's medical records. - Dylon Inquiry Pt receiving controlled substance: No Vital Signs: 08/12/20 23:50 08/13/20 00:23 Temperature 97.2 F L Temperature Source Oral Pulse Rate [Right Brachial] 111 H Respiratory Rate 17 Blood Pressure [Right Arm] 128/95 H Blood Pressure Mean [Right Arm] 106 Blood Pressure Source [Right Arm] Automatic Cuff Blood Pressure Position [Right Arm] Sitting 02 Sat by Pulse Oximetry 98 Oxygen Delivery Method Room Air Room Air Orders (Tests/Meds): ED MEDICATIONS Generic Name Dose Route Start Last Admin Trade Name Freq PRN Reason Stop Dose Admin Naproxen 500 mg 08/13/20 00:00 08/13/20 00:03 Naproxen 500mg Tablet PO 09/12/20 00:00 500 mg BIDP PRN Administration Breakthru Moderate Pain Discontinued Medications Generic Name Dose Route Start Last Admin Trade Name Freq PRN Reason Stop Dose Admin Cyclobenzaprine HCl 10 mg 08/12/20 23:52 08/13/20 00:03 Cyclobenzaprine 10mg Tablet PO 08/12/20 23:53 10 mg ONCE ONE Administration Naproxen 500 mg 08/13/20 23:52 Naproxen 500mg Tablet PO 08/13/20 23:53 ONCE ONE - CT Data CT Scan: L-Spine Time Received: 01:[address] Reviewed: Yes: I have viewed the radiologist's interpretation Medical Decision Narrative: Male who presents 2 days after falling down stairs backwards. 7 pain in his lower L-spine as well as around the sides bilaterally. No red flag symptoms for compressive etiology and patient will be evaluated with CT scan of his lumbar spine and CT bony pelvis. Given naproxen and Flexeril for pain and muscle relaxation. Chronic T12-L1 disc etiology however this is not from the fall. Pt will be consulted to orthopedics in follow up and discharged in good condition. General Adult HPI - General Chief complaint: Back Pain/Injury Stated complaint: Back Pain Time Seen by Provider: 08/12/20 23:51 - History of Present Illness HPI narrative: 30 yo M who presents with pain in his back after falling backward down 5 stairs two days ago. He denies head trauma and reports negative LOC. pt states the pain is worse with movement. Denies saddle anesthesia, numbness in his extremities, weakness in his legs, urinary incontinence or retention. Pain is worse by then end of day and pt has used heating pad to no relief. Denies neck pain and upper back pain, No radiation of the pain. - Related Data Previous Rx's Medication Instructions Recorded colchicine 0.6 mg capsule 0.6 mg PO DAILY PRN #30 cap 03/01/20 indomethacin 25 mg capsule 25 mg PO TID PRN 30 Days #90 cap 03/01/20 Dicyclomine HCl [Bentyl 10mg 10 mg PO TID PRN #15 cap 03/28/20 capsule] Ondansetron [Zofran 4mg ODT] 4 mg
--- NOTE | 2020-08-13 00:01 | CT_ITS ---
PROCEDURE INFORMATION: Exam: CT Lumbar Spine Without Contrast Exam date and time: 08/13/2020 12:01 AM Age: 30 years old Clinical indication: Pain and injury or trauma; Blunt trauma (contusions or hematomas); Patient HX: Low back pain after fall backwards down steps; Additional info: Fall backwards down stairs back pain TECHNIQUE: Imaging protocol: Computed tomography images of the lumbar spine without contrast. Radiation optimization: All CT scans at this facility use at least one of these dose optimization techniques: automated exposure control; mA and/or kV adjustment per patient size (includes targeted exams where dose is matched to clinical indication); or iterative reconstruction. COMPARISON: CR SPLUMBLM XR lumbar spine 2-3V 11/08/2017 1:31 PM FINDINGS: Vertebrae: No acute fracture. Normal alignment. Discs/Spinal canal/Neural foramina: There is chronic appearing broad-based posterior disc protrusion at T12-L1 which produces moderate central canal stenosis. Soft tissues: No acute findings. IMPRESSION: 1. No acute fracture. 2. Chronic appearing posterior disc protrusion at T12-L1 produces moderate central canal stenosis.
--- NOTE | 2020-08-13 00:01 | CT_ITS ---
PROCEDURE INFORMATION: Exam: CT Pelvis Without Contrast; Skeletal Exam date and time: 08/13/2020 12:01 AM Age: 30 years old Clinical indication: Pain and injury or trauma; Fall; Blunt trauma (contusions or hematomas); Bilateral; Pelvic region; Pelvic pain; Patient HX: Fell backwards down steps; Additional info: Fall backwards down stairs back pain TECHNIQUE: Imaging protocol: Computed tomography images of the pelvis without contrast. Exam focused on the skeletal structures. 3D rendering (Not supervised by radiologist): MIP and/or 3D reconstructed images were created by the technologist. Radiation optimization: All CT scans at this facility use at least one of these dose optimization techniques: automated exposure control; mA and/or kV adjustment per patient size (includes targeted exams where dose is matched to clinical indication); or iterative reconstruction. COMPARISON: No relevant prior studies available. FINDINGS: Bones/joints: Unremarkable. No acute fracture. No dislocation. Soft tissues: Unremarkable. IMPRESSION: No acute findings.
[2020-08-13 02:15] VITALS: BP 142/75; PULSE 73; RESP 15; TEMP 36.8; O2SAT 98
== END 2020-08-13 02:16 | disposition home or self-care (01) ==
PROVIDERS: Emergency Provider Student in an Organized Health Care Education/Training Program; PCP Physician Assistant
DX: M54.5 Low back pain (principal); K21.9 Gastro-esophageal reflux disease without esophagitis; F17.210 Nicotine dependence, cigarettes, uncomplicated; Z79.899 Other long term (current) drug therapy
CPT/HCPCS: 72131; 72192; 99282

== ENCOUNTER 2020-10-12 11:14 | Emergency (ER) | payer OTHER, SELFPAY ==
[2020-10-12 11:29] VITALS: BP 118/88; PULSE 64; RESP 18; TEMP 36.6; O2SAT 99; BMI 41.5
--- NOTE | 2020-10-12 11:34 | XR_ITS ---
PROCEDURE: XR FOOT LT MIN 3V CLINICAL INDICATION: pain/swelling COMPARISON: No exams were available for comparison FINDINGS: No fracture or dislocation. No lytic or blastic change. There is normal mineralization. The joint spaces are well-preserved. No significant degenerative/arthritic changes. No erosive changes evident. There is a small accessory navicular bone. There is mild diffuse soft tissue swelling of the forefoot. There is a small calcaneal enthesophyte at the insertion of the plantar tendon. Other findings:None. IMPRESSION: Mild diffuse soft tissue swelling of the forefoot both dorsal and volar aspect, no foreign body seen Dictated by: Dr. Wayne Al MD 10/12/2020 11:53 Dr. Wayne Al MD in [place] 10/12/2020 11:53
--- NOTE | 2020-10-12 12:05 | HMH.EDUTC ---
[facility] Disposition Clinical Impression: Left foot pain, Swelling of left foot Disposition: Home, Self-Care Condition on Discharge: Good Instructions: DI for Gout, DI for Foot Pain Additional Instructions: Rest the extremity, Elevate the extremity as tolerated while you are resting. Take the medications that I sent in to your pharmacy as directed. Follow up with Dr. Bar (podiatry) if your symptoms are not improving. I put in a referral but you need to call her office and schedule an appointment. Follow up with your regular doctor. GO TO THE ER FOR ANY WORSENING SYMPTOMS Prescriptions: methylPREDNISolone [Medrol] 4 mg PO DIRECTED 6 Days #21 tab.ds.pk Transmission Status: Received by [id number] Referrals: Tierra Correa PA [Primary Care Provider] - Forms: Work/School Release Time of Disposition: 12:11 Medical Decision Making - Medical Records Medical records reviewed: No: I reviewed the patient's medical records. - Dylon Inquiry Pt receiving controlled substance: No Vital Signs: 10/12/20 11:29 10/12/20 12:18 Temperature 97.9 F 98 F Temperature Source Oral Pulse Rate 60 Pulse Rate [Left] 64 Respiratory Rate 18 16 Blood Pressure 121/87 Blood Pressure [Right Arm] 118/88 Blood Pressure Mean [Right Arm] 98 02 Sat by Pulse Oximetry 99 - Radiology Data #1 Image(s): Foot/Toes Image Reviewed: Yes I reviewed the patient's radiology image, Yes I have reviewed radiologist's interpretation Preliminary Findings: No Fracture Seen PROCEDURE: XR FOOT LT MIN 3V CLINICAL INDICATION: pain/swelling COMPARISON: No exams were available for comparison FINDINGS: No fracture or dislocation. No lytic or blastic change. There is normal mineralization. The joint spaces are well-preserved. No significant degenerative/arthritic changes. No erosive changes evident. There is a small accessory navicular bone. There is mild diffuse soft tissue swelling of the forefoot. There is a small calcaneal enthesophyte at the insertion of the plantar tendon. Other findings:None. IMPRESSION: Mild diffuse soft tissue swelling of the forefoot both dorsal and volar aspect, no foreign body seen Dictated by: Dr. Wayne Al MD 10/12/2020 11:53 Dr. Wayne Al MD in [place] 10/12/2020 11:53 [facility] HPI - General Stated complaint: swelling/pain lt big toe Time Seen by Provider: 10/12/20 12:05 Mode of Arrival: Ambulatory Source of Information: Patient Limitations: No Limitations Description of Symptoms (Recalled from Triage Doc. by RN): pt states his L great toe is painful and he can barely put weight on it. The L great toe and foot behind it are swollen, red, and warm to the touch. no injury noted. all he can think of is that he was moving a dryer yesterday. HEENT Symptoms (Recalled from RN notes): No Resp Symptoms (Recalled from RN notes): No Skin Symptoms (Recalled from RN notes): No MS Symptoms (Recalled from RN notes): Yes (L great toe and foot pain) Functional Status (Recalled from RN notes): na - History of Present Illness Provider Complaint: He states that he has had left foot pain and tenderness since yesterday. He denies any known injury. He does have a history of gout, but he has never had gout affect this foot. He denies any fever and chills. - Related Data Previous Rx's Medication Instructions Recorded colchicine 0.6 mg capsule 0.6 mg PO DAILY PRN #30 cap 03/01/20 indomethacin 25 mg capsule 25 mg PO TID PRN 30 Days #90 cap 03/01/20 Dicyclomine HCl [Bentyl 10mg 10 mg PO TID PRN #15 cap 03/28/20 capsule] Ondansetron [Zofran 4mg ODT] 4 mg PO TIDP PRN #6 tab 03/28/20 cephALEXin [Cephalexin 500mg Tab] 500 mg PO Q6H #7 tab 04/09/20 Cyclobenzaprine HCl [Flexeril 10mg 10 mg PO TID PRN 4 Days #12 tab 08/13/20 tablet] methylPREDNISolone [Medrol] 4 mg PO DIRECTED 6 Days #21 10/12/20 tab.ds.pk Allergies Allergy/AdvReac Type Severity Reaction Statu
[2020-10-12 12:18] VITALS: BP 121/87; PULSE 60; RESP 16; TEMP 36.6
== END 2020-10-12 12:19 | disposition home or self-care (01) ==
PROVIDERS: Emergency Provider Nurse Practitioner Family; PCP Physician Assistant
DX: M79.672 Pain in left foot (principal); K21.9 Gastro-esophageal reflux disease without esophagitis; R00.2 Palpitations; F17.290 Nicotine dependence, other tobacco product, uncomplicated
CPT/HCPCS: 73630; 99202; G0463

== ENCOUNTER 2021-01-25 16:16 | Emergency (ER) | payer OTHER, SELFPAY ==
[2021-01-25 16:20] VITALS: BP 119/86; PULSE 88; RESP 21; TEMP 36.6; O2SAT 99; BMI 45.7
[2021-01-25 16:43] LABS: UTC Strep Screen (Rapid) Negative (Negative)
--- NOTE | 2021-01-25 17:06 | HMH.EDUTC ---
[place] Disposition Clinical Impression: Viral upper respiratory infection Disposition: Home, Self-Care Condition on Discharge: Good Instructions: DI for Viral Upper Respiratory Infection -- Adult, Common Cold, Sore Throat Additional Instructions: *Monitor Temp, Over the counter Motrin or Tylenol as directed/as needed Tylenol every 4 hours and Motrin every 6 hours (as long as your family doctor has told you that you can take it) for fever or pain. and straight to ER if unable to lower temp less than 101.0 after medication given *Warm salt water gargles may help to soothe the throat *Throat Lozenges *Warm fluids like tea with honey may help to soothe the throat *Sleep elevated *Humidifier/Vaporizer Your throat swab was sent for culture. Those results are typically sent to your primary care. Be sure to follow up in 2-3 days with your family doctor/primary care physician if no improvement so they can review those result and treat if necessary. If you don?t have a primary care doctor, I recommend you get one but in the mean time, you will have to return to a walk in clinic Follow up IMMEDIATELY for new or worsening symptoms or no Noticeable improvement over the next 48-72 hours. 911 for difficulty breathing or swallowing You were tested for today for COVID19 your test result should be back in the next 24-48 hours, you can view your results on the [facility] [employer] portal you will be given hand out on how to log on if you have trouble you may call the [facility] You was given a handout with instructions for Self Quarantine and Self isolation for while you wait on test results and what to do if they are positive If you are positive the Health Dept will be contacting you also Make sure to take your Vitamins Vit. C Vit D and Zinc if you can take them Referrals: Tierra Correa PA [Primary Care Provider] - As needed Forms: Work/School Release Time of Disposition: 17:19 Medical Decision Making - Dylon Inquiry Pt receiving controlled substance: No Dylon was queried for this patient: No Vital Signs: 01/25/21 16:20 Temperature 97.8 F Temperature Source Oral Pulse Rate [Right Brachial] 88 Respiratory Rate 21 Blood Pressure [Right Arm] 119/86 Blood Pressure Mean [Right Arm] 97 Blood Pressure Source [Right Arm] Automatic Cuff Blood Pressure Position [Right Arm] Sitting 02 Sat by Pulse Oximetry 99 Oxygen Delivery Method Room Air - Lab Data Lab results reviewed: Yes: I reviewed the patient's lab results. Lab Results 01/25/21 16:20: Strep Scn Rapid Clinic Negative Orders (Tests/Meds): ORDERS Category Date Time Status Strep Screen Confirmation Stat Micro 01/25/21 16:20 Received [place] HPI - General Stated complaint: strep test Time Seen by Provider: 01/25/21 17:06 Mode of Arrival: Ambulatory Source of Information: Patient Limitations: No Limitations Description of Symptoms (Recalled from Triage Doc. by RN): PATIENT C/O SORE THROAT, HEADACHE, COUGH, AND SNEEZING SINCE SATURDAY HEENT Symptoms (Recalled from RN notes): Yes Resp Symptoms (Recalled from RN notes): No Skin Symptoms (Recalled from RN notes): No MS Symptoms (Recalled from RN notes): No Functional Status (Recalled from RN notes): WNL - History of Present Illness Provider Complaint: Patient states that he went to work this evening and he had to leave States that it hit him all at once States that he started having headache, runny nose, sore throat and feeling achy all over States that he wanted to get tested for Strep - Related Data Allergies Allergy/AdvReac Type Severity Reaction Status Date / Time allopurinol AdvReac Mild chest pain Verified 10/12/20 11:35 - Worker's Comp Is this a Worker's Comp case?: No [facility] History - Hepatitis A Screen Drug use history?: No High risk sexual behaviors?: No History of sexually transmitted infection?: No Currently employed?: No Childcare worker?: No Do you have indoor plumbing?: Yes Do you have
[2021-01-25 17:22] VITALS: BP 119/86; PULSE 88; RESP 21; TEMP 36.6; O2SAT 99
== END 2021-01-25 17:29 | disposition home or self-care (01) ==
PROVIDERS: Emergency Provider Nurse Practitioner; PCP Physician Assistant
DX: J06.9 Acute upper respiratory infection, unspecified (principal); Z20.822 Contact with and (suspected) exposure to COVID-19; R00.2 Palpitations; K21.9 Gastro-esophageal reflux disease without esophagitis; F17.210 Nicotine dependence, cigarettes, uncomplicated
CPT/HCPCS: 87880; 99203; C9803; G0463; U0003; U0005

== ENCOUNTER 2021-02-18 19:17 | Emergency (ER) | payer OTHER, SELFPAY ==
[2021-02-18 19:30] VITALS: BP 143/99; PULSE 91; RESP 18; TEMP 36.9; O2SAT 99; BMI 38.7
--- NOTE | 2021-02-18 20:20 | HMH.EDUTC ---
[facility] [place] Disposition Clinical Impression: Exposure to COVID-19 virus Disposition: Home, Self-Care Condition on Discharge: Good Instructions: DI for COVID-19 (Suspected or Confirmed ), Preventing the Spread of Coronavirus Discharge Instructions Additional Instructions: *Monitor Temp, Over the counter Motrin or Tylenol as directed/as needed Tylenol every 4 hours and Motrin every 6 hours (as long as your family doctor has told you that you can take it) for fever or pain. and straight to ER if unable to lower temp less than 101.0 after medication given *Warm salt water gargles may help to soothe the throat *Throat Lozenges *Warm fluids like tea with honey may help to soothe the throat *Sleep elevated *Humidifier/Vaporizer Follow up IMMEDIATELY for new or worsening symptoms or no Noticeable improvement over the next 48-72 hours. 911 for difficulty breathing or swallowing You were tested for today for COVID19 your test result should be back in the next 24-48 hours, you may check for your result on the [facility] [employer] portal if you have trouble logging on you may call for assistance or get you results in person from Health Information office Saturday 8am 430pm You was given a handout with instructions for Self Quarantine and Self isolation for while you wait on test results and what to do if they are positive If you are positive the Health Dept will be contacting you also Referrals: Tierra Correa PA [Primary Care Provider] - As needed Forms: Work/School Release Time of Disposition: 20:22 Medical Decision Making - Dylon Inquiry Pt receiving controlled substance: No Dylon was queried for this patient: No Vital Signs: 02/18/21 19:30 Temperature 98.4 F Temperature Source Oral Pulse Rate [Right Brachial] 91 H Respiratory Rate 18 Blood Pressure [Right Arm] 143/99 H Blood Pressure Mean [Right Arm] 113 Blood Pressure Source [Right Arm] Automatic Cuff Blood Pressure Position [Right Arm] Sitting 02 Sat by Pulse Oximetry 99 Oxygen Delivery Method Room Air Orders (Tests/Meds): ORDERS Category Date Time Status Covid-19 Nasal PCR ([facility]) Routine Lab 02/18/21 19:30 Received [facility] HPI - General 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 by RN): PATIENT C/O BODY ACHES AND HEADACHE SINCE YESTERDAY. STATES HIS GIRLFRIEND TESTED POSITIVE FOR COVID 2 DAYS AGO HEENT Symptoms (Recalled from RN notes): Yes Resp Symptoms (Recalled from RN notes): No Skin Symptoms (Recalled from RN notes): No MS Symptoms (Recalled from RN notes): Yes Functional Status (Recalled from RN notes): WNL - History of Present Illness Provider Complaint: Patient states that his girlfriend tested postive for COVID a couple days ago States that since then he has started to have body aches and feeling like he may have the flu so he came in to get tested for COVID to see if he caught it off of her - Related Data Allergies Allergy/AdvReac Type Severity Reaction Status Date / Time allopurinol AdvReac Mild chest pain Verified 10/12/20 11:35 - Worker's Comp Is this a Worker's Comp case?: No [facility] History - Hepatitis A Screen Drug use history?: No High risk sexual behaviors?: No History of sexually transmitted infection?: No Currently employed?: No Childcare worker?: No Do you have indoor plumbing?: Yes Do you have electricity?: Yes Attestation statement:: This patient has been screened for Hepatitis A risk factors. I have reviewed the patient's past medical history: Yes Medical History: Reports:: Gastroesophageal Reflux Disease(GERD), Palpitations Denies:: Cancer, Diabetes Mellitus Type 1, Diabetes Mellitus Type 2, Hypertension, MRSA Other Medical History: Reports: Arthritis, Other Comment: Gout Other Surgeries: Yes: No Previous Surgery Amputation:
[2021-02-18 20:25] VITALS: BP 143/99; PULSE 91; RESP 18; TEMP 36.9; O2SAT 99
--- NOTE | 2021-02-21 14:40 | PC.NURSE ---
pt. notified of positive test result.
== END 2021-02-18 20:28 | disposition home or self-care (01) ==
PROVIDERS: Emergency Provider Nurse Practitioner; PCP Physician Assistant
DX: U07.1 COVID-19 (principal); K21.9 Gastro-esophageal reflux disease without esophagitis; R00.2 Palpitations; F17.290 Nicotine dependence, other tobacco product, uncomplicated
CPT/HCPCS: 99202; C9803; G0463; U0003; U0005

== ENCOUNTER 2021-05-18 09:27 | Emergency (ER) | payer OTHER, SELFPAY ==
--- NOTE | 2021-05-18 09:46 | XR_ITS ---
FINAL REPORT CLINICAL HISTORY: pain rt foot FINDINGS: 3 views of the right foot were obtained. There is no acute fracture or dislocation. The joint spaces are intact. There is soft tissue swelling over the dorsum of the foot up to 1.8 cm. IMPRESSION: Swelling with no acute bony abnormality. Reviewed, Interpreted and Dictated by Anthony Lynn MD Transcribed by Kyle Carvajal Authenticated by Anthony Lynn MD on 05/18/2021 11:00:38 AM [facility]
[2021-05-18 09:47] VITALS: BP 130/83; PULSE 81; RESP 19; TEMP 37; O2SAT 98; BMI 41.5
--- NOTE | 2021-05-18 09:53 | HMH.EDUTC ---
[facility] [place] Disposition Clinical Impression: Acute gout Qualifiers: Gout site: unspecified site Gout etiology: unspecified cause Qualified Code(s): M10.9 - Gout, unspecified Disposition: Home, Self-Care Condition on Discharge: Good Instructions: Gout, DI for Gout, Colchicine Additional Instructions: Take medication as prescribed Follow up with your Family Doctor if no improvement or any worsening of symptoms Return if needed Straight to ER if any life threatening symptoms Prescriptions: Colchicine [Colcrys 0.6mg tablet] 0.6 mg PO DIRECTED #6 tab Transmission Status: Received by [id number] Referrals: Tierra Correa PA [Primary Care Provider] - Forms: Work/School Release Time of Disposition: 10:39 Medical Decision Making - Dylon Inquiry Pt receiving controlled substance: No Dylon was queried for this patient: No Vital Signs: 05/18/21 09:47 05/18/21 11:09 Temperature 98.6 F 98.6 F Temperature Source Oral Pulse Rate 81 Pulse Rate [Left Radial] 81 Respiratory Rate 19 19 Blood Pressure 130/83 Blood Pressure [Left Arm] 130/83 Blood Pressure Mean [Left Arm] 98 Blood Pressure Source [Left Arm] Automatic Cuff Blood Pressure Position [Left Arm] Sitting 02 Sat by Pulse Oximetry 98 Oxygen Delivery Method Room Air - Lab Data Lab Results 05/18/21 09:52: Uric Acid 9.0 H Orders (Tests/Meds): ED MEDICATIONS Discontinued Medications Generic Name Dose Route Start Last Admin Trade Name Freq PRN Reason Stop Dose Admin Methylprednisolone Sodium Succinate 125 mg 05/18/21 10:31 05/18/21 11:04 Methylprednisolone Sod Succ 125mg Vial IM 05/18/21 10:32 125 mg ONCE ONE Administration - Radiology Data #1 Image(s): Foot/Toes Image Reviewed: Yes I have reviewed radiologist's interpretation IMPRESSION: Swelling with no acute bony abnormality. [facility] [place] HPI - General Stated complaint: rt toe purple/painful Time Seen by Provider: 05/18/21 09:54 Mode of Arrival: Ambulatory Source of Information: Patient Limitations: No Limitations Description of Symptoms (Recalled from Triage Doc. by RN): C/O pain in rt foot HEENT Symptoms (Recalled from RN notes): No Resp Symptoms (Recalled from RN notes): No Skin Symptoms (Recalled from RN notes): No MS Symptoms (Recalled from RN notes): No Functional Status (Recalled from RN notes): n/a - History of Present Illness Provider Complaint: Patient state that he has been having pain and swelling in his toes on right foot State that he is not sure if he hurt them or if his gout is flaring up again so he came in to get checked - Related Data Previous Rx's Medication Instructions Recorded Colchicine [Colcrys 0.6mg tablet] 0.6 mg PO DIRECTED #6 tab 05/18/21 Allergies Allergy/AdvReac Type Severity Reaction Status Date / Time allopurinol AdvReac Mild chest pain Verified 10/12/20 11:35 - Worker's Comp Is this a Worker's Comp case?: No [facility] History - Hepatitis A Screen Drug use history?: No High risk sexual behaviors?: No History of sexually transmitted infection?: No Currently employed?: No Childcare worker?: No Do you have indoor plumbing?: Yes Do you have electricity?: Yes Attestation statement:: This patient has been screened for Hepatitis A risk factors. I have reviewed the patient's past medical history: Yes Medical History: Reports:: Gastroesophageal Reflux Disease(GERD), Palpitations Denies:: Cancer, Diabetes Mellitus Type 1, Diabetes Mellitus Type 2, Hypertension, MRSA Other Medical History: Reports: Arthritis, Other Comment: Gout Other Surgeries: Yes: No Previous Surgery Amputation: No Fractures: No - Social History Smoking Status: Light tobacco smoker Tobacco Type: smokeless tobacco # Packs/Day (cigarettes): 1 Alcohol Intake: never Alcohol Intake Frequency:: a few times a month Substance Use Type: denies use Occupational Status: other Housing: house Family Hx:: Cancer, Hypertension Comm
[2021-05-18 11:09] VITALS: BP 130/83; PULSE 81; RESP 19; TEMP 37; O2SAT 98
== END 2021-05-18 11:09 | disposition home or self-care (01) ==
PROVIDERS: Emergency Provider Nurse Practitioner; PCP Physician Assistant
DX: M10.071 Idiopathic gout, right ankle and foot (principal); K21.9 Gastro-esophageal reflux disease without esophagitis
CPT/HCPCS: 73630; 84550; 96372; 99202; G0463

== ENCOUNTER 2021-05-29 20:27 | Emergency (ER) | payer OTHER, SELFPAY ==
[2021-05-29 20:35] VITALS: BP 138/94; PULSE 82; RESP 16; TEMP 36.2; O2SAT 100; BMI 48.8
--- NOTE | 2021-05-29 20:58 | HMH.EDUTC ---
[facility] [place] Disposition Clinical Impression: Headache Qualifiers: Headache type: unspecified Headache chronicity pattern: acute headache Intractability: not intractable Qualified Code(s): R51.9 - Headache, unspecified Disposition: Home, Self-Care Condition on Discharge: Good Instructions: DI for Migraine Additional Instructions: Drink plenty of fluids. Take the ibuprofen for pain if you need it later. Don't take ibuprofen or any other nsaid for the next 6 hours though. Take the medications as directed. Follow up with your regular doctor. GO TO THE ER FOR ANY WORSENING SYMPTOMS The promethazine tablets will help your nausea if it returns, but they will make you very drowsy, so don't drive or operate heavy machinery after taking it. Prescriptions: Ibuprofen [Ibuprofen 800mg Tablet] 800 mg PO Q8HP PRN #30 tab PRN Reason: Moderate Pain Transmission Status: [facility] Promethazine HCl [Phenergan 25mg tab] 25 mg PO Q6H PRN #15 tab PRN Reason: Nausea And Vomiting Transmission Status: [facility] Referrals: Tierra Correa PA [Primary Care Provider] - Forms: Work/School Release Time of Disposition: 21:39 Medical Decision Making - Medical Records Medical records reviewed: No: I reviewed the patient's medical records. - Dylon Inquiry Pt receiving controlled substance: No Vital Signs: 05/29/21 20:35 05/29/21 21:16 Temperature 97.2 F L 97.2 F L Temperature Source Oral Pulse Rate 82 Pulse Rate [Left] 82 Respiratory Rate 16 16 Blood Pressure 138/94 H Blood Pressure [Right Arm] 138/94 H Blood Pressure Mean [Right Arm] 108 02 Sat by Pulse Oximetry 100 Orders (Tests/Meds): ED MEDICATIONS Discontinued Medications Generic Name Dose Route Start Last Admin Trade Name Freq PRN Reason Stop Dose Admin Ketorolac Tromethamine 60 mg 05/29/21 21:10 05/29/21 21:15 Ketorolac 60mg/2ml Vial IM 05/29/21 21:11 60 mg ONCE ONE Administration Methylprednisolone Sodium Succinate 125 mg 05/29/21 21:10 05/29/21 21:15 Methylprednisolone Sod Succ 125mg Vial IM 05/29/21 21:11 125 mg ONCE ONE Administration Promethazine HCl 25 mg 05/29/21 21:10 05/29/21 21:15 Promethazine Hcl 25mg/Ml 1ml Vial IM 05/29/21 21:11 25 mg ONCE ONE Administration Sodium Chloride 25 ml 05/29/21 21:10 Sodium Chloride 0.9% 25ml Bag IV 05/29/21 21:11 ONCE ONE [facility] [place] HPI - General Stated complaint: possible migraine, nausea Time Seen by Provider: 05/29/21 20:58 Mode of Arrival: Ambulatory Source of Information: Patient Limitations: No Limitations Description of Symptoms (Recalled from Triage Doc. by RN): pt states he has had a bad BECKER and has been nauseated all day. HEENT Symptoms (Recalled from RN notes): Yes Resp Symptoms (Recalled from RN notes): No Skin Symptoms (Recalled from RN notes): No MS Symptoms (Recalled from RN notes): No Functional Status (Recalled from RN notes): wnl - History of Present Illness Provider Complaint: He states that he has had a headache since earlier today. He denies a known history of migraine, but he states that he does get headaches at times. He has not taken anything at home to try to relieve it. He missed work so he came here to be treated and to get a work excuse. He denies any fever/chills/vision changes. He does have nausea with it. - Related Data Previous Rx's Medication Instructions Recorded Colchicine [Colcrys 0.6mg tablet] 0.6 mg PO DIRECTED #6 tab 05/18/21 Ibuprofen [Ibuprofen 800mg 800 mg PO Q8HP PRN #30 tab 05/29/21 Tablet] Promethazine HCl [Phenergan 25mg 25 mg PO Q6H PRN #15 tab 05/29/21 tab] Allergies Allergy/AdvReac Type Severity Reaction Status Date / Time allopurinol AdvReac Mild chest pain Verified 10/12/20 11:35 - Worker's Comp Is this a Worker's Comp case?: No [facility] History - Hepatitis A Screen Drug use history?: No High risk sexua
[2021-05-29 21:16] VITALS: BP 138/94; PULSE 82; RESP 16; TEMP 36.2
--- NOTE | 2021-05-29 21:31 | PC.NURSE ---
pt states his BECKER has started easing up.
== END 2021-05-29 21:43 | disposition home or self-care (01) ==
PROVIDERS: Emergency Provider Nurse Practitioner Family; PCP Physician Assistant
DX: R51.9 Headache, unspecified (principal); R00.2 Palpitations; R11.0 Nausea; K21.9 Gastro-esophageal reflux disease without esophagitis; M19.90 Unspecified osteoarthritis, unspecified site; F17.290 Nicotine dependence, other tobacco product, uncomplicated; Z79.1 Long term (current) use of non-steroidal anti-inflammatories (NSAID); Z79.899 Other long term (current) drug therapy; Z88.8 Allergy status to other drugs, medicaments and biological substances; Z82.49 Family history of ischemic heart disease and other diseases of the circulatory system; Z80.9 Family history of malignant neoplasm, unspecified
CPT/HCPCS: 96372; 99213; G0463

== ENCOUNTER 2021-07-11 21:35 | Emergency (ER) | payer OTHER, SELFPAY ==
[2021-07-11 21:36] VITALS: BP 132/91; PULSE 80; RESP 18; TEMP 36.9; O2SAT 98; BMI 43.2
--- NOTE | 2021-07-11 22:24 | CT_ITS ---
PROCEDURE INFORMATION: Exam: CT Head Without Contrast Exam date and time: 07/11/2021 10:44 PM Age: 31 years old Clinical indication: Other: Migraine TECHNIQUE: Imaging protocol: Computed tomography of the head without contrast. Total images: 268 Radiation optimization: All CT scans at this facility use at least one of these dose optimization techniques: automated exposure control; mA and/or kV adjustment per patient size (includes targeted exams where dose is matched to clinical indication); or iterative reconstruction. COMPARISON: HDWO CT HEAD W/O CONTRAST 06/27/2016 5:59 PM FINDINGS: Brain: No extra-axial fluid collections. No evidence of acute intracranial hemorrhage. Kennedy-white differentiation is well maintained. No CT evidence of large territory acute or subacute intracranial ischemia/infarct. No intracranial mass lesions. No midline shift or herniation. Cerebral ventricles: Ventricles normal. Paranasal sinuses: Mucosal thickening and mucous retention cyst versus polyp formation in the inferior maxillary sinuses with minor mucosal thickening in the right anterior ethmoid distributions suggesting mild changes of chronic sinus inflammatory disease. No fluid levels. Mastoid air cells: Visualized mastoid air cells are clear. Orbital cavities: Visualized orbital contents demonstrate no acute abnormality. Vasculature: The visualized major intracranial arterial segments demonstrate no gross abnormality by noncontrast CT. No asymmetric vascular hyperdensities suggestive of thrombosis are identified. Bones/joints: The calvarium and visualized facial bones are intact. Soft tissues: The scalp and visualized soft tissues demonstrate no acute abnormality. Other findings: The IACs are grossly normal. The sella is grossly normal. IMPRESSION: 1. No acute intracranial process. No intracranial hemorrhage or mass effect. 2. Mild changes of chronic sinus inflammatory disease. No fluid levels.
--- NOTE | 2021-07-11 22:24 | CT_ITS ---
PROCEDURE INFORMATION: Exam: CT Maxillofacial Without Contrast, Sinus Exam date and time: 07/11/2021 10:46 PM Age: 31 years old Clinical indication: Other: Migraine TECHNIQUE: Imaging protocol: CT Maxillofacial without contrast. Focus on the sinuses. Total images: 472 Radiation optimization: All CT scans at this facility use at least one of these dose optimization techniques: automated exposure control; mA and/or kV adjustment per patient size (includes targeted exams where dose is matched to clinical indication); or iterative reconstruction. COMPARISON: CT HEAD/BRAIN WO CON 07/11/2021 10:44 PM FINDINGS: Frontal sinuses: Normal. No air-fluid levels. Ethmoid air cells: Normal. No air-fluid levels. Sphenoid sinuses: Normal. No air-fluid levels. Maxillary sinuses: Mild mucosal thickening and mucous retention cyst versus polyp formation in the inferior maxillary sinuses and mild mucosal thickening in the right anterior ethmoid distribution. The other paranasal sinuses are clear. No fluid levels. The OMC's are patent. Nasal cavity/Septum: Unremarkable. Orbital cavities: Orbital contents are normal. Bones/joints: No fractures or other bone lesions are identified. TMJs are well aligned. Soft tissues: No significant facial soft tissue swelling is appreciated. No hematoma. No foreign body. The infratemporal fossae and experimental rocket sled mechanic spaces are unremarkable. The parapharyngeal spaces are unremarkable. Mastoid air cells: The mastoid air cells are clear. Nasopharynx: The nasopharynx is unremarkable. Dental: Moderate dental caries. Oropharynx: The oropharynx is unremarkable. Hypopharynx: The hypopharynx is unremarkable. Larynx: Normal epiglottis. Submandibular/Parotid glands: The parotid and submandibular glands are unremarkable. Lymph nodes: No adenopathy. Brain: Visualized intracranial contents are unremarkable. IMPRESSION: 1. Changes of mild chronic sinus inflammatory disease involving the bilateral maxillary and right anterior ethmoid distributions. No fluid levels. 2. Moderate dental caries. No gross cellulitis or dental abscess.
[2021-07-11 22:26] VITALS: BP 146/92; PULSE 94; O2SAT 100
--- NOTE | 2021-07-11 22:39 | HMH.EDHA ---
ED Disposition Clinical Impression: Morbid obesity with body mass index (BMI) of 40.0 to 49.9 Sinusitis Qualifiers: Sinusitis location: pansinusitis Chronicity: acute Recurrence: not specified as recurrent Qualified Code(s): J01.40 - Acute pansinusitis, unspecified Headache Qualifiers: Headache type: unspecified Headache chronicity pattern: acute headache Intractability: not intractable Qualified Code(s): R51.9 - Headache, unspecified Disposition: Home, Self-Care Condition on Discharge: Good Instructions: DI for Sinusitis, DI for Sinus Headache Additional Instructions: use meds and see pcp for follow up Prescriptions: cephALEXin [cephALEXin 500mg capsule*] 500 mg PO TID #30 cap Transmission Status: Pending to [facility] predniSONE [Prednisone 20mg Tab] 20 mg PO BID #10 tab Transmission Status: Pending to [facility] Referrals: Tierra Correa PA [Primary Care Provider] - - Critical Care Critical Care Time: No Attestation: On 07/11/21, the high probability of a clinically significant, sudden or life threatening deterioration of the following system(s) required my full and direct attention, intervention and personal management. The time I documented below is in addition to time spent performing reported procedures but includes the following listed in this critical care notation. Medical Decision Making - Medical Records Medical records reviewed: Yes: I reviewed the patient's medical records. - Dylon Inquiry Pt receiving controlled substance: No Vital Signs: 07/11/21 21:36 07/11/21 22:26 Temperature 98.5 F Temperature Source Oral Pulse Rate 94 H Pulse Rate [Right] 80 Respiratory Rate 18 Blood Pressure 146/92 H Blood Pressure [Right Arm] 132/91 H Blood Pressure Mean [Right Arm] 104 Blood Pressure Source [Right Arm] Automatic Cuff 02 Sat by Pulse Oximetry 98 100 Oxygen Delivery Method Room Air Room Air - Lab Data Lab results reviewed: Yes: I reviewed the patient's lab results. Lab Results 07/11/21 22:30: WBC 6.8, RBC 5.38, Hgb 15.7, Hct 48.1, MCV 89.4, MCH 29.2, MCHC 32.7, RDW 14.0, Plt Count 296, MPV 8.3, Neut % (Auto) 55.5, Lymph % (Auto) 35.6, Christian % (Auto) 4.4, Eos % (Auto) 1.9, Baso % (Auto) 2.6 H, Neut # (Auto) 3.7, Lymph # (Auto) 2.4, Christian # (Auto) 0.3, Eos # (Auto) 0.1, Baso # (Auto) 0.2, ESR 4 07/11/21 22:30: Sodium 140, Potassium 3.6, Chloride 106, Carbon Dioxide 27, Anion Gap 10.6, BUN 8 L, Creatinine 0.60 L, Estimated Creat Clear 158, Estimated GFR 159, Est GFR ( Amer) 193, Glucose 92, Calcium 9.3, Total Bilirubin 0.6, AST 26, ALT 22, Alkaline Phosphatase 58, Total Protein 6.8, Albumin 4.4, Globulin 2.4, Albumin/Globulin Ratio 1.8 Result diagrams: 07/11/21 22:30 07/11/21 22:30 Orders (Tests/Meds): ED MEDICATIONS Generic Name Dose Route Start Last Admin Trade Name Freq PRN Reason Stop Dose Admin Sodium Chloride 1,000 mls @ 999 mls/hr 07/11/21 22:45 07/11/21 22:48 Sod Chlor 0.45% 1000ml Bag IV 07/11/21 23:30 999 mls/hr .Q1H1M BETTY Administration Discontinued Medications Generic Name Dose Route Start Last Admin Trade Name Freq PRN Reason Stop Dose Admin Ketorolac Tromethamine 30 mg 07/11/21 22:36 07/11/21 22:48 Ketorolac 30mg/Ml Vial IV 07/11/21 22:37 30 mg ONCE ONE Administration Ondansetron HCl 4 mg 07/11/21 22:36 07/11/21 22:48 Ondansetron 4mg/2ml Vial IV 07/11/21 22:37 4 mg ONCE ONE Administration - CT Data CT Scan: Head, Sinus Time Received: 23:[address] Reviewed: Yes: I have viewed the radiologist's interpretation Preliminary Findings: Abnormal Medical Decision Narrative: has stable exam and has abn ct - will see to see dentist/ent and pcp Headache HPI - General Chief Complaint: Headache Stated Complaint: migraine Time Seen by Provider: 07/11/21 22:39 Mode of Arrival: Family Vehicle Source of Information: Patient, Medical Record Limitations: No Limitations Descrip
--- NOTE | 2021-07-11 22:49 | PC.NURSE ---
patient to CT
[2021-07-11 22:52] LABS: Basophils # 0.2 K/mm3 (0-0.2); Basophils % 2.6 % (0.1-2.0); Eosinophils # 0.1 K/mm3 (0.0-0.4); Eosinophils % 1.9 % (0.1-12.0); Hematocrit 48.1 % (42.0-52.0); Hemoglobin 15.7 g/dL (14.1-18.0); Lymphocytes # 2.4 K/mm3 (0.7-4.5); Lymphocytes % 35.6 % (10-50); Mean Corpuscular HGB Conc 32.7 g/dL (31.8-35.4); Mean Corpuscular Hemoglobin 29.2 pg (27.0-31.2); Mean Corpuscular Volume 89.4 fl (80-94); Mean Platelet Volume 8.3 fl (7.4-10.4); Monocytes # 0.3 K/mm3 (0.1-1.0); Monocytes % 4.4 % (1.7-9.3); Neutrophils # 3.7 K/mm3 (1.8-7.8); Neutrophils % 55.5 % (37.0-80.0); Platelet Count 296 K/mm3 (142-424); Red Blood Count 5.38 M/mm3 (4.60-6.20); White Blood Count 6.8 K/mm3 (4.8-10.8)
[2021-07-11 23:14] LABS: Alanine Aminotransferase 22 U/L (12-78); Albumin Level 4.4 g/dl (3.5-5.0); Albumin/Globulin Ratio 1.8 (1.1-1.8); Alkaline Phosphatase 58 U/L (38-126); Anion Gap 10.6 mEq/L (5-15); Aspartate Amino Transferase 26 U/L (17-59); Bilirubin,Total 0.6 mg/dl (0.2-1.3); Blood Urea Nitrogen 8 mg/dl (9-20); Calcium 9.3 mg/dl (8.4-10.2); Carbon Dioxide 27 mmol/L (22.0-30.0); Chloride 106 mmol/L (98-107); Creatinine Clearance Estimated 158 mL/min (50-200); Estimated Glomerular Filt Rate 159 ml/min (>60); GFR (African American) 193 ML/MIN (>60); Globulin 2.4 g/dL (1.3-3.2); Glucose 92 mg/dl (74-100); Potassium 3.6 mmoL/L (3.5-5.1); Sodium 140 mmol/L (136-145); Total Protein,Serum 6.8 g/dl (6.3-8.2)
[2021-07-11 23:21] LABS: Erythrocyte Sedimentation Rate 4 mm/hr (0-15)
[2021-07-11 23:44] VITALS: BP 132/85; PULSE 81; RESP 20; TEMP 36.8; O2SAT 97
== END 2021-07-11 23:58 | disposition home or self-care (01) ==
PROVIDERS: Emergency Provider Emergency Medicine; PCP Physician Assistant
DX: J01.40 Acute pansinusitis, unspecified (principal); R00.2 Palpitations; K21.9 Gastro-esophageal reflux disease without esophagitis; E66.01 Morbid (severe) obesity due to excess calories; Z68.41 Body mass index [BMI] 40.0-44.9, adult; F17.210 Nicotine dependence, cigarettes, uncomplicated
CPT/HCPCS: 70450; 70486; 80053; 85025; 85651; 96360; 96375; 99284; J2405

== ENCOUNTER 2021-08-10 15:21 | Emergency (ER) | payer OTHER, SELFPAY ==
[2021-08-10 15:40] VITALS: BP 124/78; PULSE 69; RESP 19; TEMP 36.7; O2SAT 98; BMI 45.7
[2021-08-10 15:41] LABS: Adenovirus,PCR Not Detected (NotDetected); Bordetella Pertussis Not Detected (NotDetected); Chlamydophila Pneumoniae, PCR Not Detected (NotDetected); Coronavirus 19, PCR Not Detected (NotDetected); Coronavirus 229E Not Detected (NotDetected); Coronavirus NL63 Not Detected (NotDetected); Coronavirus OC43 Not Detected (NotDetected); Coronovirus HKU1,PCR Not Detected (NotDetected); Human Metapneumovirus Not Detected (NotDetected); Influenza A, PCR Not Detected (NotDetected); Influenza AH1, 2009 Not Detected (NotDetected); Influenza AH1, PCR Not Detected (NotDetected); Influenza AH3,PCR Not Detected (NotDetected); Influenza B, PCR Not Detected (NotDetected); Mycoplasma Pneumoniae, PCR Not Detected (NotDetected); Parainfluenza 1, PCR Not Detected (NotDetected); Parainfluenza 2, PCR Not Detected (NotDetected); Parainfluenza 3, PCR Not Detected (NotDetected); Parainfluenza 4, PCR Not Detected (NotDetected); Rhinovirus/Enterovirus Not Detected (NotDetected)
--- NOTE | 2021-08-10 16:02 | HMH.EDUTC ---
[facility] [place] Clinical Impression: Otitis media Qualifiers: Otitis media type: unspecified Laterality: left Qualified Code(s): H66.92 - Otitis media, unspecified, left ear Disposition: Home, Self-Care Condition on Discharge: Good Instructions: Middle Ear Infection, Amoxicillin Additional Instructions: *Monitor Temp, Over the counter Motrin or Tylenol as directed/as needed Tylenol every 4 hours and Motrin every 6 hours (as long as your family doctor has told you that you can take it) for fever or pain. and straight to ER if unable to lower temp less than 101.0 after medication given *Warm salt water gargles may help to soothe the throat *Throat Lozenges *Warm fluids like tea with honey may help to soothe the throat *Sleep elevated *Humidifier/Vaporizer Take medication as prescribed Your Upper Respiratory Panel results should be back in the next 24-48 hours you can check for your results on the [facility] [employer] [facility] Follow up IMMEDIATELY for new or worsening symptoms or no Noticeable improvement over the next 48-72 hours. 911 for difficulty breathing or swallowing Prescriptions: Amoxicillin [Amoxicillin 875MG Tab] 875 mg PO Q12H #20 tab Transmission Status: Pending to [facility] Referrals: Tierra Correa PA [Primary Care Provider] - As needed Forms: Work/School Release Time of Disposition: 16:13 Medical Decision Making - Dylon Inquiry Pt receiving controlled substance: No Dylon was queried for this patient: No Vital Signs: 08/10/21 15:40 Temperature 98.1 F Temperature Source Oral Pulse Rate [Left] 69 Respiratory Rate 19 Blood Pressure [Right Arm] 124/78 Blood Pressure Mean [Right Arm] 93 02 Sat by Pulse Oximetry 98 Orders (Tests/Meds): ORDERS Category Date Time Status Full Resp Panel w/COVID ([facility]) Routine Lab 08/10/21 15:33 Received [facility] [place] HPI - General Stated complaint: left ear pain Time Seen by Provider: 08/10/21 16:02 Mode of Arrival: Ambulatory Source of Information: Patient Limitations: No Limitations Description of Symptoms (Recalled from Triage Doc. by RN): pt c/o a L ear ache x2wks. pt states he wants checked for RSV. 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 too - Related Data Previous Rx's Medication Instructions Recorded Colchicine [Colcrys 0.6mg tablet] 0.6 mg PO DIRECTED #6 tab 05/18/21 Ibuprofen [Ibuprofen 800mg 800 mg PO Q8HP PRN #30 tab 05/29/21 Tablet] Promethazine HCl [Phenergan 25mg 25 mg PO Q6H PRN #15 tab 05/29/21 tab] cephALEXin [cephALEXin 500mg 500 mg PO TID #30 cap 07/11/21 capsule*] predniSONE [Prednisone 20mg 20 mg PO BID #10 tab 07/11/21 Tab] Amoxicillin [Amoxicillin 875MG 875 mg PO Q12H #20 tab 08/10/21 Tab] Allergies Allergy/AdvReac Type Severity Reaction Status Date / Time allopurinol AdvReac Mild chest pain Verified 10/12/20 11:35 - Worker's Comp Is this a Worker's Comp case?: No [facility] History - Hepatitis A Screen Attestation statement:: This patient has been screened for Hepatitis A risk factors. I have reviewed the patient's past medical history: Yes Medical History: Reports:: Gastroesophageal Reflux Disease(GERD), Palpitations Denies:: Cancer, Diabetes Mellitus Type 1, Diabetes Mellitus Type 2, Hypertension, MRSA Other Medical History: Reports: Arthritis, Other Comment: Gout Other Surgeries: Yes: No Previous Surgery Amputation: No Fractures: No - Social History Smoking Status: Light tobacco smoker Tobacco Type: smokeless tobacco # Packs/Day (cigarettes):
[2021-08-10 16:15] VITALS: BP 124/78; PULSE 69; RESP 19; TEMP 36.7
[2021-08-10 19:20] LABS: Respiratory Syncytial Virus Detected (NotDetected)
== END 2021-08-10 16:23 | disposition home or self-care (01) ==
PROVIDERS: Emergency Provider Nurse Practitioner; PCP Physician Assistant
DX: H66.92 Otitis media, unspecified, left ear (principal)
CPT/HCPCS: 87581; 87632; 87798; 99212; C9803; G0463; U0003; U0005

== ENCOUNTER 2021-12-20 18:11 | Emergency (ER) | payer OTHER, SELFPAY ==
--- NOTE | 2021-12-20 18:22 | XR_ITS ---
PROCEDURE INFORMATION: Exam: XR Right Foot Exam date and time: 12/20/2021 6:23 PM Age: 31 years old Clinical indication: Pain; Foot; Right TECHNIQUE: Imaging protocol: Radiologic exam of the Right foot. Views: 3 or more views. COMPARISON: CR XR FOOT RT MIN 3V 05/18/2021 9:43 AM FINDINGS: Bones/joints: No evidence of acute displaced cortical disruption or dislocation. Regional bone density and trabecular pattern have a satisfactory appearance. Plantar calcaneal spur. Soft tissues: No radiopaque foreign object or localized soft tissue swelling. IMPRESSION: 1. No acute fracture is identified. 2. Plantar calcaneal spur.
[2021-12-20 18:27] VITALS: BP 128/83; PULSE 73; RESP 18; TEMP 36.4; O2SAT 97; BMI 43.7
--- NOTE | 2021-12-20 18:32 | EXP.UTC ---
Discharge Plan Disposition Patient Disposition: Home, Self-Care Condition: Good Prescriptions Prescriptions: New methylprednisolone 4 mg Tablets,Dose Pack 4 mg PO DIRECTED Qty: 21 0RF No Action ibuprofen 800 MG tablet 800 mg PO Q8HP PRN (Reason: Moderate Pain) Qty: 30 0RF promethazine 25 MG tablet 25 mg PO Q6H PRN (Reason: Nausea And Vomiting) Qty: 15 2RF prednisone 20 MG tablet 20 mg PO BID Qty: 10 0RF cephalexin 500 MG capsule 500 mg PO TID Qty: 30 0RF amoxicillin 875 MG tablet 875 mg PO Q12H Qty: 20 0RF colchicine 0.6 MG tablet 0.6 mg PO DIRECTED Qty: 6 0RF Rx Instructions: Take 2 tablets (1.2mg) now followed by 1 tablet (0.6mg) 1 hour later. may repeat in 72 hours (3 days) if still having symptoms Referrals Follow up/Referrals: Tierra Correa PA [Primary Care Provider] - See instructions Activity Restrictions/Add. Instructions Additional Instructions/Restrictions: Rest the extremity, Elevate the extremity as tolerated while you are resting. Take the medication as directed. Follow up with Dr. Bar (podiatry). I put in a referral but you need to call her office and schedule an appointment if your symptoms continue. Follow up with your regular doctor. GO TO THE ER FOR ANY WORSENING SYMPTOMS Clinical Impressions Clinical Impression: Gout, Foot pain, right Instructions Patient Instructions: Gout, DI for Gout Discharge ED Provider: Donovan Saleem [facility] General Stated complaint: R foot pain no accident Time Seen by Provider: 12/20/21 18:32 History of Present Illness Provider Complaint: He states that for the past 4 days he has had right foot pain. He denies any injury. He has a history of gout. He attributed his symptoms to gout. He came in today because he has a new job that starts in 2 days and he did not want to have foot pain when it starts. He denies any other pain or complaints. Related Data Previous Rx's Medication Instructions Recorded colchicine 0.6 mg tablet 0.6 mg PO DIRECTED #6 tabs 05/18/21 ibuprofen 800 mg tablet 800 mg PO Q8HP PRN Moderate Pain 05/29/21 #30 tabs promethazine 25 mg tablet 25 mg PO Q6H PRN Nausea And 05/29/21 Vomiting #15 tabs cephalexin 500 mg capsule 500 mg PO TID #30 caps 07/11/21 prednisone 20 mg tablet 20 mg PO BID #10 tabs 07/11/21 amoxicillin 875 mg tablet 875 mg PO Q12H #20 tabs 08/10/21 methylprednisolone 4 mg tablets in 4 mg PO DIRECTED #21 tabs 12/20/21 a dose pack Allergies Allergy/AdvReac Type Severity Reaction Status Date / Time allopurinol AdvReac Mild chest pain Verified 10/12/20 11:35 PFSH PFS Social History Smoking Status: Light tobacco smoker tobacco type: smokeless tobacco second hand exposure: Yes alcohol intake: never substance use type: denies use current occupational status: other Travel in the last 8 weeks: None housing: house ROS Obtained: Yes All systems reviewed & no additional complaints except as documented Constitutional Constitutional: Denies chills and Denies fever(s) Integumentary/Breasts Skin/Breast: Denies redness, Denies rash and Denies wounds Neurologic Neurologic: Denies paresthesias Physical Exam General General appearance: alert and in no apparent distress Head Head exam: atraumatic, normocephalic and normal inspection Eye Eye exam: Present normal appearance, PERRL and EOMI ENT ENT exam: Present normal exam, normal oropharynx, mucous membranes moist, TM's normal bilaterally and normal external ear exam Neck Neck exam: Present normal inspection, full ROM and trachea midline; Absent meningismus or lymphadenopathy Chest Chest inspection: Present normal inspection and symmetric chest wall rise; Absent tenderness Respiratory Respiratory exam: Present normal lung sounds bilaterally; Absent respiratory distress Cardiovascular Cardiovascular exam: Present regular rate
[2021-12-20 19:30] VITALS: BP 128/83; PULSE 73; RESP 18; TEMP 36.4; O2SAT 97
== END 2021-12-20 19:30 | disposition home or self-care (01) ==
PROVIDERS: Emergency Provider Nurse Practitioner Family; PCP Physician Assistant
DX: M10.9 Gout, unspecified (principal)
CPT/HCPCS: 73630; 99212; G0463

== ENCOUNTER 2022-02-23 08:18 | Emergency (ER) | payer OTHER, SELFPAY ==
--- NOTE | 2022-02-23 08:25 | EXP.UTC ---
Discharge Plan Disposition Patient Disposition: Home, Self-Care Condition: Good Prescriptions Prescriptions: New methylprednisolone 4 mg Tablets,Dose Pack 4 mg PO DIRECTED Qty: 21 0RF fvzmbrigjufsgbo-[id number]-NC [Bromfed DM] 2-30-10 mg/5 mL Syrup 5 ml PO Q6H PRN (Reason: Cough) Qty: 240 0RF amoxicillin-pot clavulanate 875-125 mg Tablet 1 tab PO Q12H Qty: 20 0RF No Action ibuprofen 800 MG tablet 800 mg PO Q8HP PRN (Reason: Moderate Pain) Qty: 30 0RF promethazine 25 MG tablet 25 mg PO Q6H PRN (Reason: Nausea And Vomiting) Qty: 15 2RF prednisone 20 MG tablet 20 mg PO BID Qty: 10 0RF cephalexin 500 MG capsule 500 mg PO TID Qty: 30 0RF amoxicillin 875 MG tablet 875 mg PO Q12H Qty: 20 0RF methylprednisolone 4 mg Tablets,Dose Pack 4 mg PO DIRECTED Qty: 21 0RF colchicine 0.6 MG tablet 0.6 mg PO DIRECTED Qty: 6 0RF Rx Instructions: Take 2 tablets (1.2mg) now followed by 1 tablet (0.6mg) 1 hour later. may repeat in 72 hours (3 days) if still having symptoms Referrals Follow up/Referrals: Tierra Correa PA [Primary Care Provider] - See instructions Activity Restrictions/Add. Instructions Additional Instructions/Restrictions: Drink plenty of fluids. Take tylenol or ibuprofen for pain or fever. Take the medications as directed. Follow up with your regular doctor. GO TO THE ER FOR ANY WORSENING SYMPTOMS Clinical Impressions Clinical Impression: Pharyngitis Stand Alone Forms Stand Alone Forms: Work/School Release Instructions Patient Instructions: Strep Throat, DI for Strep Throat Discharge ED Provider: Donovan Saleem [facility] General Stated complaint: Sore throat Time Seen by Provider: 02/23/22 08:25 History of Present Illness Provider Complaint: He c/o feeling bad and having a sore throat since yesterday. he has had chills also. Related Data Previous Rx's Medication Instructions Recorded colchicine 0.6 mg tablet 0.6 mg PO DIRECTED #6 tabs 05/18/21 ibuprofen 800 mg tablet 800 mg PO Q8HP PRN Moderate Pain 05/29/21 #30 tabs promethazine 25 mg tablet 25 mg PO Q6H PRN Nausea And 05/29/21 Vomiting #15 tabs cephalexin 500 mg capsule 500 mg PO TID #30 caps 07/11/21 prednisone 20 mg tablet 20 mg PO BID #10 tabs 07/11/21 amoxicillin 875 mg tablet 875 mg PO Q12H #20 tabs 08/10/21 methylprednisolone 4 mg tablets in 4 mg PO DIRECTED #21 tabs 12/20/21 a dose pack amoxicillin 875 mg-potassium 1 tab PO Q12H #20 tabs 02/23/22 clavulanate 125 mg tablet qfcflblplusafjf-eyutbesxqsgltke-OT 5 ml PO Q6H PRN Cough #240 mL 02/23/22 2 mg-30 mg-10 mg/5 mL oral syrup (Bromfed DM) methylprednisolone 4 mg tablets in 4 mg PO DIRECTED #21 tabs 02/23/22 a dose pack Allergies Allergy/AdvReac Type Severity Reaction Status Date / Time allopurinol AdvReac Mild chest pain [facility] 02[facility]23[facility]22 08:48 [facility] Disclaimer: The information contained in this section may have been updated after the patient was seen, as this information can be updated by other users. Social History Smoking Status: Light tobacco smoker tobacco type: smokeless tobacco second hand exposure: Yes alcohol intake: never substance use type: denies use current occupational status: other Travel in the last 8 weeks: None housing: house ROS Obtained: Yes All systems reviewed & no additional complaints except as documented Constitutional Constitutional: Reports chills and Denies fever(s) Eyes Eyes: Denies eye discharge ENT Ears, Nose, Mouth, and Throat: Reports as per HPI Cardiovascular Cardiovascular: Denies chest pain Respiratory Respiratory: Denies chest congestion and Reports cough Gastrointestinal Gastrointestingal: Reports nausea; Denies abdominal pain, constipation, cramping, diarrhea or vomiting Musculoskeletal Musculoskeletal: Denies arthralgias Integumentary/Breasts Ski
[2022-02-23 08:41] VITALS: BP 145/96; PULSE 87; RESP 18; TEMP 36.5; O2SAT 100; BMI 45.7
[2022-02-23 08:45] LABS: UTC Influenza A Antigen Negative (Negative); UTC Strep Screen (Rapid) Negative (Negative)
[2022-02-23 08:46] LABS: UTC Influenza B Antigen Negative (Negative)
[2022-02-23 09:06] VITALS: BP 145/96; PULSE 87; RESP 18; TEMP 36.5
== END 2022-02-23 09:08 | disposition home or self-care (01) ==
PROVIDERS: Emergency Provider Nurse Practitioner Family; PCP Physician Assistant
DX: J02.9 Acute pharyngitis, unspecified (principal)
CPT/HCPCS: 87804; 87880; 99212; G0463

== ENCOUNTER 2022-12-01 20:54 | Emergency (ER) | payer OTHER, SELFPAY ==
[2022-12-01 20:55] VITALS: BP 133/89; PULSE 89; RESP 18; TEMP 36.7; O2SAT 99; BMI 49.0
[2022-12-01 21:02] VITALS: BP 133/89; PULSE 98; RESP 20; O2SAT 95
--- NOTE | 2022-12-01 21:13 | XR_ITS ---
PROCEDURE INFORMATION: Exam: XR Left Ankle Exam date and time: 12/01/2022 9:28 PM Age: 32 years old Clinical indication: Pain; Ankle; Left; Additional info: Left lateral ankle pain TECHNIQUE: Imaging protocol: Radiologic exam of the left ankle. Views: 3 or more views. COMPARISON: CR XR ANKLE LT MIN 3V 12/30/2019 2:51 AM FINDINGS: Bones/joints: No acute fracture or dislocation is identified. Soft tissues: There is some soft tissue swelling. IMPRESSION: No acute osseous injury.
--- NOTE | 2022-12-01 21:18 | HMH.EDGENADL ---
Discharge Plan Disposition Patient Disposition: Home, Self-Care Prescriptions Prescriptions: No Action No Known Home Medications Referrals Follow up/Referrals: Tierra Correa PA [Primary Care Provider] - See instructions Activity Restrictions/Add. Instructions Additional Instructions/Restrictions: Your x-ray was unremarkable please follow-up with your primary care doctor as previously instructed. Clinical Impressions Clinical Impression: Ankle pain, left, Bilateral edema of lower extremity Discharge ED Provider: Aaron Del Valle General Adult HPI General Chief complaint: Extremity Injury, Lower Stated complaint: L foot pain Time Seen by Provider: 12/01/22 21:10 Mode of Arrival: Ambulatory Source of Information: Patient Limitations: No Limitations Description of Symptoms (Recalled from ER Triage Doc. by RN): Pt presents with left foot pain and swelling that started 2 days ago. Pt denies any injury. Foot has palpable pulses, red, swollen and tnder to touch. History of Present Illness HPI narrative: 32-year-old male presenting today with left lateral ankle pain without an obvious injury. States that he has had bilateral lower extremity edema and swelling chronically he follows with Tierra Correa but that his left lateral aspect of his ankle was hurting more than normal he decided come to the emergency department. No fevers or chills. Denies other symptoms. Related Data Home Medications Medication Instructions Recorded Confirmed No Known Home Medications 12/01/22 12/01/22 Allergies Allergy/AdvReac Type Severity Reaction Status Date / Time allopurinol AdvReac Mild chest pain Verified 02/23/22 08:48 [facility] Disclaimer: The information contained in this section may have been updated after the patient was seen, as this information can be updated by other users. Social History Smoking Status: Current every day smoker tobacco type: smokeless tobacco second hand exposure: Yes alcohol intake: never substance use type: denies use current occupational status: other Travel in the last 8 weeks: None housing: house ROS Obtained: Yes All systems reviewed & no additional complaints except as documented Physical Exam General General appearance: alert Respiratory Respiratory exam: Present normal lung sounds bilaterally; Absent respiratory distress Cardiovascular Cardiovascular exam: Present regular rate; Absent tachycardia Extremities Exam Extremities exam: Present other (Bilateral symmetric lower extremity edema, 2+ PT and DP pulses, no pathologic erythema. There is mild lateral malleolus soft tissue swelling and tenderness on the left ankle.) Neurological Exam Neurological exam: Present alert and oriented X3 Medical Decision Making Dylon Inquiry Pt receiving controlled substance: No Vital Signs: 12/01/22 20:55 12/01/22 21:02 12/01/22 21:30 Temperature 98.1 F Temperature Source Oral Pulse Rate 98 H 84 Pulse Rate [Left] 89 Respiratory Rate 18 20 20 Blood Pressure 133/89 130/74 Blood Pressure [Right Arm] 133/89 Blood Pressure Mean 109 92 Blood Pressure Mean [Right Arm] 103 Blood Pressure Source [Right Arm] Automatic Cuff Blood Pressure Position [Right Arm] Sitting 02 Sat by Pulse Oximetry 99 95 97 Oxygen Delivery Method Room Air Lab Data Lab results reviewed: Yes I reviewed the patient's lab results. Orders (Tests/Meds): ORDERS Category Date Time Status Ankle XR - Left minimum 3 Views [XR ankle LT min 3V] Exams 12/01/22 21:13 Taken Stat Medical Decision Narrative: Patient with chronic lower extremity edema and nontraumatic left ankle tenderness and swelling and pain. There is no pathologic erythematous not consistent with an infectious process. Likely he had a sprain or some type of mechanism that led to this today. This is not consistent with a septic joint or other
[2022-12-01 21:30] VITALS: BP 130/74; PULSE 84; RESP 20; O2SAT 97
[2022-12-01 21:52] VITALS: BP 155/75; PULSE 73; RESP 17; TEMP 36.8; O2SAT 98
== END 2022-12-01 21:54 | disposition home or self-care (01) ==
PROVIDERS: Emergency Provider Student in an Organized Health Care Education/Training Program; PCP Physician Assistant
DX: M25.572 Pain in left ankle and joints of left foot (principal); R60.9 Edema, unspecified; F17.290 Nicotine dependence, other tobacco product, uncomplicated
CPT/HCPCS: 73610; 99283

== ENCOUNTER → 2022-12-27 09:18 | Outpatient (CLI) | payer OTHER, SELFPAY ==
--- NOTE | 2022-12-27 09:56 | XR_ITS ---
FINAL REPORT CLINICAL HISTORY: foot pain x3 months, swelling COMPARISON: None FINDINGS: LEFT FOOT: Three views of the left foot were obtained. There is mild degenerative change of the first metatarsal phalangeal joint. There are probable subchondral cysts in the superior calcaneus, most likely degenerative. There is a small plantar calcaneal spur. Soft tissue swelling is noted surrounding the ankle. IMPRESSION: Degenerative change as described above, with soft tissue swelling. Reviewed, Interpreted and Dictated by Joe Dockery III, MD Transcribed by Ching Arriaza Authenticated and [facility]
== END ==
PROVIDERS: PCP Physician Assistant; Visit Provider Podiatrist
DX: M79.672 Pain in left foot (principal); S93.602A Unspecified sprain of left foot, initial encounter
CPT/HCPCS: 73630

== ENCOUNTER → 2023-02-07 11:24 | Outpatient (CLI) | payer OTHER, SELFPAY ==
--- NOTE | 2023-02-07 11:27 | XR_ITS ---
FINAL REPORT CLINICAL HISTORY: Foot pain COMPARISON: 12/27/2022 FINDINGS: LEFT FOOT Three views of the left foot demonstrate no acute fracture or dislocation. The visualized joint spaces are normally aligned. There are mild degenerative changes. There is a small plantar calcaneal spur. The soft tissues are unremarkable. IMPRESSION: No acute bony abnormality. Reviewed, Interpreted and Dictated by Joe Dockery III, MD Transcribed by Elsa Hansen Authenticated and [facility]
--- NOTE | 2023-02-07 11:27 | XR_ITS ---
FINAL REPORT CLINICAL HISTORY: Foot pain COMPARISON: 12/01/2022 FINDINGS: Left ankle Three views were obtained. There is a small calcification inferior to the lateral malleolus, may represent a small avulsion of uncertain age. Mild degenerative changes are present. There is soft tissue swelling. Small plantar spur is noted. IMPRESSION: Findings may represent a small avulsion of uncertain age. Reviewed, Interpreted and Dictated by Joe Dockery III, MD Transcribed by Sarah Jose Authenticated and [facility]
== END ==
PROVIDERS: PCP Physician Assistant; Visit Provider Nurse Practitioner Family
DX: M25.572 Pain in left ankle and joints of left foot (principal); M79.672 Pain in left foot
CPT/HCPCS: 73610; 73630

== ENCOUNTER 2023-02-21 09:56 | Outpatient (RCR) | payer OTHER, SELFPAY ==
--- NOTE | 2023-02-21 10:37 | HMH.PTOPEV ---
PT Outpatient Evaluation Rehab PT Outpatient Evaluation Start: 02/21/23 10:24 Freq: Status: Active Protocol: Document 02/21/23 10:24 JOSSELYN (Rec: 02/21/23 10:37 JOSSELYN [id number]) E-signed By Raul Brambila, PT Outpatient Therapy Subjective History Subjective History Pt reports insidious onset lateral aspect left ankle pain beginning ~6 months ago. Pt reports localized pain around left lateral malleolus with referred pain into achilles area. Pt reports pain has progressed over the last ~30 days, and reports no significant change w/addition of left walking boot recently. New diagnosis of cancer in past 12 No months? Chief Complaint Pain,Stiff,Swelling,Weakness Symptom Type Ache,Sharp,Dull,Stabbing Symptoms Relieved By Rest/Positioning Symptoms Aggravated By Standing,Physical Activity, Walking Prior Functional Limitations Housework,Standing,Walking, Stairs Current Functional Limitations Housework,Standing,Walking Symptom Description Constant but Variable Level of pain today (0-10) 6 Pain scale - at its best (0-10) 5 Pain scale - at its worst (0-10) 9 Ankle/Foot Eval Gait Observation General Gait Pattern Observation Antalgic Gait Palpation Tenderness left Ankle/Foot Palpation Overall Comment 3/4 peroneal tendon(s) just posterior to lateral malleolus ROM Ankle/Foot Dorsiflexion w/Knee Extended +2 Active Range Motion (degrees) Ankle/Foot Plantar Flexion Active Range 2-20 of Motion (degrees) Ankle/Foot Eversion Active Range of 0-9 Motion (degrees) Ankle/Foot Inversion Active Range of 0-17 Motion (degrees) Ankle/Foot ROM Limitations Soft Tissue Tightness,Pain MMT Ankle Dorsiflexion Strength Grade 4 Good Ankle Plantarflexion Strength Grade 4 Good Foot Eversion Strength Grade 4- Good- Foot Inversion Strength Grade 4- Good- Special Tests Ankle Anterior Drawer Test Negative Left Ankle Eversion Test Negative Left Talar Tilt Test Negative Left Lower Extremity Functional Index Activities Today, do you or would you have any difficulty at all with: a.Any of your usual work, housework or Quite a bit of difficulty school activities b. Your usual hobbies, recreational or Moderate difficulty sporting activities c. Getting into or out of the bath Moderate difficulty d. Walking between rooms Moderate difficulty e. Putting on your shoes or socks Quite a bit of difficulty f. Squatting Moderate difficulty g. Lifting an object, like a bag of Extreme difficulty or unable groceries from the floor to perform activity h. Performing light activities around Quite a bit of difficulty your home i. Performing heavy activities around Quite a bit of difficulty your home j. Getting into or out of a car A little bit of difficulty k. Walking 2 blocks Quite a bit of difficulty l. Walking a mile Quite a bit of difficulty m. Going up or down 10 stairs (about 1 Extreme difficulty or unable flight of stairs) to perform activity n. Standing for 1 hour Moderate difficulty o. Sitting for 1 hour No difficulty p. Running on even ground Extreme difficulty or unable to perform activity q. Running on uneven ground Extreme difficulty or unable to perform activity r. Making sharp turns while running fast Extreme difficulty or unable to perform activity s. Hopping Extreme difficulty or unable to perform activity t. Rolling over in bed Moderate difficulty LEFI Score Lower Extremity Functional Index Score 25 Outpatient Therapy Assessment Impairments Problems/Impairmments Palpation Tenderness,Impaired Range of Motion,Impaired Strength,Impaired Gait Pattern ,Impaired Walking,Impaired Standing,Impaired Household Care,Impaired Work Activities, Subjective C/O Pain,Impaired Self Care/Self Management Prognosis Rehab Potential Good Clinical Impression Consistent with Diagnosis Yes Short Term Goals Number of Weeks 4 Decreased Palpation Tenderness Yes: 1-2/4 left ankle Increase Range of Motion Yes: 50-60% of WFL LEFT ANKLE Increase Strength Yes: 4/5 LEFT ANKLE Increase Ability to Walk Yes: 30MIN Increase Ability to Stand Yes: 30MIN Improve Ability For Household Care Yes: 30MIN Improve LEFI Score Yes: 30-35 Decrease Subjective C/O Pain Yes: 3-4/10 W/ABOVE ACTIVITIES Patient to be Ind w/ HEP Yes [employer] Goals Number of Weeks 6-8 Decreased Palpation Tenderness Yes: 0-1/4 LEFT ANKLE Increase Range of Motion Yes: 80-90% OF WFL LEFT ANKLE Increase Strength Yes: 4+-5/5 LEFT ANKLE Improve Gait Pattern without Assistive Yes: WFL Device Increase Ability to Walk Yes: 60MIN Increase Ability to Stand Yes: 60MIN Improve Ability For Household Care Yes: WFL Improve Tolerance to Work Activities Yes: WFL FULL-DUTY Improve LEFI Score Yes: 45-50 Decrease Subjective C/O Pain Yes: 0-2/10 W/ABOVE ACTIVITIES Patient to be Ind w/ Advanced HEP Yes Outpatient Therapy Plan of Care Treatment Plan May Include Therapeutic Exercise Including Home Yes Exercise Program Manual Therapy Techniques Yes Neuromuscular Re-education Yes Therapeutic Activities to Return to Yes Previous Functional/Work Level Gait Training Yes ADL/Self Care Education Yes Dry Needling Yes Thermal Modalities Yes Electrical Stimulation Yes Ultrasound/Phonophoresis Yes Iontophoresis Yes Orthotics/Bracing/Splinting Yes Vasopneumatic Compression Pump Yes Eval/Re-Eval Yes Frequency Times per week 2-3 Duration Number of Weeks 6-8 Addendums This patient is a candidate for social No or vocational rehab? Patient/Guardian verbally acknowledges Yes understanding of treatment program and consents to further treatment? Patient/Guardian verbally acknowledges Yes understanding of diagnosis, prognosis and goals for treatment? Eval Complexity PT Charges 99701 - Moderate Complexity Shoulder/Elbow Eval Shoulder Objective Measurements Elbow Objective Measurements PHYSICIAN CERTIFICATION: I certify the specified therapy services for [place] are required, authorized, and reviewed every 30 days.
== END 2023-02-21 11:00 | disposition home or self-care (01) ==
LOC: PT 09:56
PROVIDERS: PCP Physician Assistant; Visit Provider Nurse Practitioner Family
DX: M25.572 Pain in left ankle and joints of left foot (principal)
CPT/HCPCS: 97163

== ENCOUNTER → 2023-02-26 10:07 | Outpatient (CLI) | payer OTHER, SELFPAY ==
[2023-02-26 10:42] LABS: Basophils % 0.2 % (0.1-2.0); Eosinophils # 0.1 K/mm3 (0.0-0.4); Eosinophils % 1.8 % (0.1-12.0); Hematocrit 40.9 % (42.0-52.0); Hemoglobin 13.7 g/dL (14.1-18.0); Lymphocytes # 2.5 K/mm3 (0.7-4.5); Lymphocytes % 35.2 % (10-50); Mean Corpuscular HGB Conc 33.4 g/dL (31.8-35.4); Mean Corpuscular Hemoglobin 28.5 pg (27.0-31.2); Mean Corpuscular Volume 85.5 fl (80-94); Mean Platelet Volume 7.4 fl (7.4-10.4); Monocytes # 0.3 K/mm3 (0.1-1.0); Monocytes % 4.2 % (1.7-9.3); Neutrophils # 4.1 K/mm3 (1.8-7.8); Neutrophils % 58.5 % (37.0-80.0); Platelet Count 247 K/mm3 (142-424); Red Blood Count 4.79 M/mm3 (4.60-6.20); Red Cell Distribution Width 14.4 % (11.5-17.5)
[2023-02-26 11:30] LABS: Alanine Aminotransferase 22 U/L (12-78); Alkaline Phosphatase 68 U/L (38-126); Aspartate Amino Transferase 25 U/L (17-59); Bilirubin,Total 0.6 mg/dl (0.2-1.3); Blood Urea Nitrogen 8 mg/dl (9-20); Calcium 9.1 mg/dl (8.4-10.2); Carbon Dioxide 26 mmol/L (22.0-30.0); Chloride 104 mmol/L (98-107); Estimated Glomerular Filt Rate 132 ml/min (>60); GFR (African American) 159 ML/MIN (>60); Glucose 106 mg/dl (74-100); Uric Acid 9.3 mg/dl (3.5-8.5)
[2023-02-26 11:32] LABS: Albumin/Globulin Ratio 1.6 (1.1-1.8); Anion Gap 10.6 mEq/L (5-15); Globulin 2.5 g/dL (1.3-3.2); Potassium 3.6 mmoL/L (3.5-5.1); Sodium 137 mmol/L (136-145); Total Protein,Serum 6.5 g/dl (6.3-8.2)
[2023-02-26 11:36] LABS: C-Reactive Protein 48.3 mg/L (0-4)
--- NOTE | 2023-02-26 11:44 | XR_ITS ---
FINAL REPORT CLINICAL HISTORY: ankle pain FINDINGS: Right ankle Three views were obtained. There is no acute fracture or dislocation. The joint spaces appear normal. No soft tissue abnormality is identified. IMPRESSION: No acute process. Reviewed, Interpreted and Dictated by Joe Dockery III, MD Transcribed by Sarah Jose Authenticated and . [facility]
--- NOTE | 2023-02-26 11:44 | XR_ITS ---
FINAL REPORT CLINICAL HISTORY: foot pain COMPARISON: 12/20/2021 FINDINGS: Right foot Three views were obtained. There is no acute fracture or dislocation. The joint spaces appear normal. No soft tissue abnormality is identified. Small plantar calcaneal spur is identified. IMPRESSION: No acute process. Reviewed, Interpreted and Dictated by Joe Dockery III, MD Transcribed by Sarah Jose Authenticated and [facility]
[2023-02-26 11:58] LABS: Erythrocyte Sedimentation Rate 58 mm/hr (0-15)
[2023-02-26 12:58] LABS: Vitamin B12 286 pg/mL (239-931)
[2023-02-27 13:17] LABS: RA Latex Turbid. <10.0 IU/mL (<14.0)
[2023-02-28 13:33] LABS: Antinuclear Antibodies, IFA Negative (.)
[2023-03-06 21:51] LABS: 1,25 Dihydroxy Vitamin D 35 pg/mL (.); 1,25-Dihydroxy, Vitamin D-2 <10 pg/mL (.); 1,25-Dihydroxy, Vitamin D-3 35 pg/mL (.)
== END ==
LOC: LAB 10:08
PROVIDERS: PCP Physician Assistant; Visit Provider Nurse Practitioner Family
DX: R60.0 Localized edema; E66.01 Morbid (severe) obesity due to excess calories; Z68.41 Body mass index [BMI] 40.0-44.9, adult; M25.571 Pain in right ankle and joints of right foot; M79.671 Pain in right foot
CPT/HCPCS: 36415; 73610; 73630; 80053; 82607; 82652; 84550; 85025; 85651; 86038; 86140; 86431

== ENCOUNTER 2023-05-11 02:53 | Emergency (ER) | payer OTHER, SELFPAY ==
[2023-05-11 02:54] VITALS: BP 104/70; PULSE 66; RESP 16; TEMP 36.6; O2SAT 98; BMI 48.6
--- NOTE | 2023-05-11 02:58 | PC.NURSE ---
in room talking with patient at this time.
--- NOTE | 2023-05-11 03:03 | CT_ITS ---
PROCEDURE INFORMATION: Exam: CT Abdomen And Pelvis With Contrast Exam date and time: 05/11/2023 3:32 AM Age: 33 years old Clinical indication: Abdominal pain; Other: Ruq; Additional info: Epigastric, ruq, bilat flank pain TECHNIQUE: Imaging protocol: Computed tomography of the abdomen and pelvis with contrast. Radiation optimization: All CT scans at this facility use at least one of these dose optimization techniques: automated exposure control; mA and/or kV adjustment per patient size (includes targeted exams where dose is matched to clinical indication); or iterative reconstruction. Contrast material: ISOVUE; Contrast volume: 75 ml; Contrast route: IV; COMPARISON: CT BONY PELVIS 08/13/2020 12:28 AM FINDINGS: Liver: Normal. No mass. Gallbladder and bile ducts: A stone is seen in the neck of the gallbladder, no wall thickening or pericholecystic fluid is noted. Pancreas: Normal. No ductal dilation. Spleen: Normal. No splenomegaly. Adrenal glands: Normal. No mass. Kidneys and ureters: Normal. No hydronephrosis. Stomach and bowel: Unremarkable. No obstruction. No mucosal thickening. Appendix: No evidence of appendicitis. Intraperitoneal space: Unremarkable. No free air. No significant fluid collection. Vasculature: Unremarkable. No abdominal aortic aneurysm. Lymph nodes: Unremarkable. No enlarged lymph nodes. Urinary bladder: The bladder wall is thickened but the bladder is decompressed. Reproductive: Unremarkable as visualized. Bones/joints: Unremarkable. No acute fracture. Soft tissues: Unremarkable. IMPRESSION: 1. Cholelithiasis without acute cholecystitis. 2. Bladder wall thickening, the bladder is decompressed however this may be false-positive, consider correlation with urinalysis however to exclude cystitis.
--- NOTE | 2023-05-11 03:03 | HMH.EDGENADL ---
Discharge Plan Disposition Patient Disposition: Home, Self-Care Prescriptions Prescriptions: No Action meloxicam 7.5 mg tablet 7.5 mg PO DAILY 30 Days Qty: 30 2RF Referrals Follow up/Referrals: Joe Mancini MD [Staff Physician] - See instructions Tierra Correa PA [Primary Care Provider] - See instructions Jameson Breen MD [Staff Physician] - See instructions Activity Restrictions/Add. Instructions Additional Instructions/Restrictions: Please follow-up with Dr. Mancini or Dr. Dunbar for further assessment of your gallbladder. If you develop unremitting pain or pain with fever, recommend returning to the ER for reassessment. Please take Tylenol and ibuprofen as needed for pain. Please follow-up with your primary care provider. Please return to the emergency department if you develop any new or worsening symptoms or become concerned for your health. Clinical Impressions Clinical Impression: Symptomatic cholelithiasis Instructions Patient Instructions: DI for Acute Abdominal Pain Discharge ED Provider: [facility] HPI General Chief complaint: Abdominal Pain Stated complaint: Back pain, side pain, vomiting, weakness Time Seen by Provider: 05/11/23 02:56 History of Present Illness HPI narrative: 33-year-old male presents with recent onset epigastric, bilateral upper quadrant and bilateral flank pain. He reports that he was feeling well earlier today. He reports that he was previously admitted to for what he believes was a kidney issue, potentially a kidney infection. He reports that he has been having burning with urination for the last couple of days. He denies any fever at home. He reports no significant nausea, denies any chest pain or shortness of breath. He did not take anything prior to arrival. Related Data Previous Rx's Medication Instructions Recorded meloxicam 7.5 mg tablet 7.5 mg PO DAILY left foot and 01/02/23 ankle pain 30 days #30 tabs Allergies Allergy/AdvReac Type Severity Reaction Status Date / Time allopurinol AdvReac Mild chest pain Verified 02/28/23 19:29 [facility] Disclaimer: The information contained in this section may have been updated after the patient was seen, as this information can be updated by other users. Social History Smoking Status: Never smoker second hand exposure: Yes alcohol intake: never substance use type: denies use current occupational status: other Travel in the last 8 weeks: None housing: house ROS Obtained: Yes All systems reviewed & no additional complaints except as documented Physical Exam General General appearance: alert and other (Uncomfortable appearing) Head Head exam: atraumatic and normocephalic Eye Eye exam: Present normal appearance, PERRL and EOMI ENT ENT exam: Present normal oropharynx and normal external ear exam Neck Neck exam: Present normal inspection and full ROM Chest Chest inspection: Present normal inspection and symmetric chest wall rise; Absent tenderness Respiratory Respiratory exam: Present normal lung sounds bilaterally; Absent respiratory distress Cardiovascular Cardiovascular exam: Present regular rate and normal rhythm Abdominal Exam Abdominal exam: Present soft and tenderness (Epigastric, right upper quadrant); Absent distention or guarding Extremities Exam Extremities exam: Present normal inspection; Absent edema or joint swelling Back Exam Back exam: Present normal inspection, CVA tenderness (R) and CVA tenderness (L) Neurological Exam Neurological exam: Present alert and oriented X3; Absent motor sensory deficit Psychiatric Psychiatric exam: Present normal affect and normal mood Skin Skin exam: Present warm, dry and normal color Lymphatic Lymphatic Findings: no adenopathy Medical Decision Making Medical Records Medical records reviewed: Yes I reviewed the patient's medical records. Dylon Inquiry Pt receiving controlled substance: No Dylon was queried for this patient: No Vital Signs: 05/11/23 02:54 Temperature 97.8 F Temperature Source Oral Pulse Rate [Radial] 66 Respiratory Rate 16 Blood Pressure [Left Arm] 104/70 L Blood Pressure Mean [Left Arm] 81 Blood Pressure Source [Left Arm] Automatic Cuff Blood Pressure Position [Left Arm] Sitting 02 Sat by Pulse Oximetry 98 Oxygen Delivery Method Room Air Lab Data Lab results reviewed: Yes I reviewed the patient's lab results. Lab Results 05/11/23 03:03: WBC 13.0 H, RBC 5.23, Hgb 15.0, Hct 45.2, MCV 86.5, MCH 28.7, MCHC 33.1, RDW 14.0, Plt Count 317, MPV 7.8, Neut % (Auto) 58.6, Lymph % (Auto) 33.9, [place] % (Auto) 4.3, Eos % (Auto) 2.9, Baso % (Auto) 0.4, Neut # (Auto) 7.6, Lymph # (Auto) 4.4, [place] # (Auto) 0.6, Eos # (Auto) 0.4, Baso # (Auto) 0.1, Sodium 140, Potassium 3.5, Chloride 103, Carbon Dioxide 30, Anion Gap 10.5, BUN 10, Creatinine 0.70, Estimated Creat Clear 148, Estimated GFR 132, Est GFR ( Amer) 159, Glucose 129 H, Calcium 9.3, Total Bilirubin 0.3, AST 21, ALT 19, Alkaline Phosphatase 69, Total Protein 7.0, Albumin 4.2, Globulin 2.8, Albumin/Globulin Ratio 1.5, Lipase 62 05/11/23 03:20: Urine Color Yellow, Urine Appearance Clear, Urine pH 5.5, Ur Specific [place] >= 1.030, Urine Protein Negative, Urine Glucose (UA) Negative, Urine Ketones Negative, Urine Blood Trace-i, Urine Nitrate Negative, Urine Bilirubin Negative, Urine Urobilinogen 0.2, Ur Leukocyte Esterase Negative, Urine RBC 3-5, Urine WBC None, Ur Squamous Epith Cells Occasional, Urine Bacteria Trace 05/11/23 03:03 05/11/23 03:03 Orders (Tests/Meds): ED MEDICATIONS Discontinued Medications Generic Name Dose Route Start Last Admin Trade Name Freq PRN Reason Stop Dose Admin Acetaminophen 1,000 mg 05/11/23 03:03 05/11/23 03:16 Acetaminophen 500mg Tab PO 05/11/23 03:04 1,000 mg ONCE ONE Administration Sodium Chloride 1,000 mls @ 999 mls/hr 05/11/23 03:15 05/11/23 03:16 Sod Chlor 0.9% 1000ml Bag IV 05/11/23 04:15 999 mls/hr .Q1H1M BETTY Administration Iopamidol 75 ml 05/11/23 03:41 05/11/23 03:42 Iopamidol-370 (76%);100ml Bottle IV 05/11/23 03:42 75 ml ONCE ONE Administration Ketorolac Tromethamine 30 mg 05/11/23 03:03 05/11/23 03:16 Ketorolac 30mg/Ml Vial IV 05/11/23 03:04 30 mg ONCE ONE Administration Sodium Chloride 10 ml 05/11/23 03:41 05/11/23 03:42 Sodium Chloride 0.9% 10ml Syr (Rad Only) IV 05/11/23 03:42 10 ml ONCE ONE Administration ORDERS Category Date Time Status CT abdomen pelvis w con Stat Cat Scan 05/11/23 03:03 Completed CBC w/Auto Diff [Complete Blood Count Auto Diff] Stat Lab 05/11/23 03:03 Completed CMP [Comprehensive Metabolic Panel] Stat Lab 05/11/23 03:03 Completed Lipase Stat Lab 05/11/23 03:03 Completed UA [Urinalysis and Microscopic] Stat Lab 05/11/23 03:20 Completed Medical Decision Narrative: 33-year-old male presents with few hours of epigastric pain, right upper quadrant pain, bilateral flank pain and a couple days of burning with urination. History was obtained via conversation with patient, family, chart review. On arrival, patient is [afebrile, hemodynamically stable, satting appropriately, alert, oriented x4, GCS 15], moving all extremities spontaneously. Full physical exam performed and significant for mild epigastric and right upper quadrant abdominal tenderness, bilateral CVA tenderness Differential includes but is not limited to UTI, pyelonephritis, ureterolithiasis, cholecystitis, gastroenteritis, pancreatitis Patient was given Tylenol, Toradol, Zofran for symptomatic management and correction of underlying abnormalities. Workup initiated including CBC CMP lipase UA CT abdomen pelvis with IV contrast. On re-evaluation, patient [remains afebrile, HD stable.] Patient reports symptomatic improvement. Laboratory workup independently interpreted by me and significant for no elevation in LFTs, mild leukocytosis with white count of 13, normal lipase, urine without evidence of infection, trace microscopic hematuria noted. Imaging independently interpreted by me and significant for CT scan with gallstones without secondary signs of cholecystitis. Pancreas normal in appearance, no evidence of obstructive nephrolithiasis.. See radiology read for full review of final results. Formal read for quadrant ultrasound was considered, but deemed unnecessary due to negative CT scan for acute cholecystitis. Given patient history, exam and workup, patient's presentation most likely represents symptomatic cholelithiasis. Extensive discussion with patient regarding his symptoms. He is encouraged to call to follow-up with Dr. Mancini or Dr. Dunbar with general surgery for consideration of elective cholecystectomy. Return precautions given including for signs and symptoms of cholecystitis. Patient discharged in stable condition. Procedures Risk/Benefits of Procedure(s) Were Explained: Yes Critical Care Critical Care Time Critical Care Time: No
[2023-05-11 03:10] LABS: Basophils # 0.1 K/mm3 (0-0.2); Basophils % 0.4 % (0.1-2.0); Eosinophils # 0.4 K/mm3 (0.0-0.4); Eosinophils % 2.9 % (0.1-12.0); Hematocrit 45.2 % (42.0-52.0); Lymphocytes # 4.4 K/mm3 (0.7-4.5); Lymphocytes % 33.9 % (10-50); Mean Corpuscular HGB Conc 33.1 g/dL (31.8-35.4); Mean Corpuscular Hemoglobin 28.7 pg (27.0-31.2); Mean Corpuscular Volume 86.5 fl (80-94); Mean Platelet Volume 7.8 fl (7.4-10.4); Monocytes # 0.6 K/mm3 (0.1-1.0); Monocytes % 4.3 % (1.7-9.3); Neutrophils # 7.6 K/mm3 (1.8-7.8); Neutrophils % 58.6 % (37.0-80.0); Platelet Count 317 K/mm3 (142-424); Red Blood Count 5.23 M/mm3 (4.60-6.20)
[2023-05-11] MEDS: 0.9 % SODIUM CHLORIDE 1000ML 1,000 ML 999 ML IV (03:16)
[2023-05-11] MEDS: ACETAMINOPHEN 500MG TAB 1000 MG PO (03:16)
[2023-05-11] MEDS: KETOROLAC 30MG/ML VIAL 30 MG IV (03:16)
[2023-05-11 03:17] LABS: Alanine Aminotransferase 19 U/L (12-78); Albumin Level 4.2 g/dl (3.5-5.0); Albumin/Globulin Ratio 1.5 (1.1-1.8); Alkaline Phosphatase 69 U/L (38-126); Anion Gap 10.5 mEq/L (5-15); Aspartate Amino Transferase 21 U/L (17-59); Bilirubin,Total 0.3 mg/dl (0.2-1.3); Blood Urea Nitrogen 10 mg/dl (9-20); Calcium 9.3 mg/dl (8.4-10.2); Carbon Dioxide 30 mmol/L (22.0-30.0); Chloride 103 mmol/L (98-107); Creatinine Clearance Estimated 148 mL/min (50-200); Estimated Glomerular Filt Rate 132 ml/min (>60); GFR (African American) 159 ML/MIN (>60); Globulin 2.8 g/dL (1.3-3.2); Glucose 129 mg/dl (74-100); Lipase 62 U/L (23-300); Potassium 3.5 mmoL/L (3.5-5.1); Sodium 140 mmol/L (136-145)
[2023-05-11 03:25] LABS: Microscopic, Urine URINE MICROSCOPIC (MICROSCOPIC)
[2023-05-11 03:29] LABS: Appearance,Urine CLEAR (Clear); Bilirubin,Urine Negative (Negative); Blood, Urine TRACE-I (Negative); Color,Urine YELLOW (Yellow); Glucose,Urine (UA) Negative (Negative); Ketones,Urine Negative (Negative); Leukocyte Esterase,Urine Negative (Negative); Nitrate,Urine Negative (Negative); PH,Urine 5.5 (5.0-8.5); Protein,Urine Negative (Negative); Specific Gravity, Urine >= 1.030 (1.005-1.030); Urobilinogen,Urine 0.2 EU/dl (0.2)
[2023-05-11] MEDS: SODIUM CHLORIDE 0.9% 10ML SYR (RAD ONLY) 10 ML IV (03:42)
[2023-05-11] MEDS: IOPAMIDOL-370 (76%);100ML BOTTLE 75 ML IV (03:42)
[2023-05-11 03:47] LABS: Bacteria,Urine Trace /lpf; Squamous Epithelial Cell,Urine Occasional #/hpf (0-5)
[2023-05-11 05:00] VITALS: BP 129/69; PULSE 78; RESP 16; TEMP 36.6; O2SAT 99
[2023-05-14 06:41] LABS: Neisseria gonorrhoeae, NAA Negative (Negative)
== END 2023-05-11 05:04 | disposition home or self-care (01) ==
PROVIDERS: Emergency Provider Emergency Medicine; PCP Physician Assistant
DX: R10.84 Generalized abdominal pain (principal); K80.20 Calculus of gallbladder without cholecystitis without obstruction; M54.59 Other low back pain
CPT/HCPCS: 74177; 80053; 81001; 83690; 85025; 87491; 87591; 96361; 96374; 99284; Q9967

== ENCOUNTER 2023-06-06 08:27 | Outpatient (CLI) | payer OTHER, SELFPAY ==
--- NOTE | 2023-06-06 08:27 | US_ITS ---
FINAL REPORT CLINICAL HISTORY: Right upper quad pain COMPARISON: CT abdomen and pelvis dated 05/11/2023 FINDINGS: Sonographic images of the right upper quadrant were obtained. The pancreas is partially obscured. There is mild fatty infiltration of the liver. There is a large gallstone present in the neck of the gallbladder, also seen on the prior CT of April 2023. There is no evidence of biliary ductal dilatation or gallbladder wall thickening.The common duct measures 2.4 mm. Limited images of the right kidney are unremarkable. IMPRESSION: Large gallstone present in the neck of the gallbladder without evidence of biliary ductal dilatation or gallbladder wall thickening. Mild fatty infiltration of the liver. Reviewed, Interpreted and Dictated by Joe Dockery III, MD Transcribed by Ching Arriaza Authenticated and [facility]
== END 2023-06-06 23:59 ==
LOC: RAD 08:27
PROVIDERS: PCP Physician Assistant; Visit Provider Surgery
DX: K80.20 Calculus of gallbladder without cholecystitis without obstruction (principal)
CPT/HCPCS: 76705

== ENCOUNTER 2023-07-04 15:03 | Emergency (ER) | payer OTHER, SELFPAY ==
[2023-07-04 15:10] VITALS: BP 136/89; PULSE 73; RESP 20; TEMP 36.5; O2SAT 99; BMI 39.1
--- NOTE | 2023-07-04 15:46 | EXP.UTC ---
Discharge Plan Disposition Patient Disposition: Home, Self-Care Condition: Good Prescriptions Prescriptions: No Action No Known Home Medications Referrals Follow up/Referrals: Tierra Correa PA [Primary Care Provider] - See instructions Activity Restrictions/Add. Instructions Additional Instructions/Restrictions: Drink plenty of fluids. Take tylenol for pain or fever. Follow up with your regular doctor. GO TO THE ER FOR ANY WORSENING SYMPTOMS Clinical Impressions Clinical Impression: Acute viral syndrome, Exposure to 2019 novel coronavirus Instructions Patient Instructions: DI for Viral Syndrome, Coronavirus Disease 2019, Preventing the Spread of Coronavirus Discharge Instructions Discharge ED Provider: Donovan Saleem [facility] [place] Stated complaint: Covid test, fever, covid exposure Mode of Arrival: Ambulatory Source of Information: Patient Limitations: No Limitations Time Seen by Provider: 07/04/23 15:41 Description of Symptoms (Recalled from Triage Doc. by RN): PATIENT REQUESTING COVID TEST D/T EXPOSURE. PATIENT STATES HE HAD A FEVER THE OTHER NIGHT. HEENT Symptoms (Recalled from RN notes): No Resp Symptoms (Recalled from RN notes): No Skin Symptoms (Recalled from RN notes): No MS Symptoms (Recalled from RN notes): No Functional Status (Recalled from RN notes): WNL History of Present Illness Provider Complaint: He states that 2 days ago he had a fever and felt bad. Since then, he denies fever but she has continued to feel bad. He denies any shortness of breath and chest congestion. He has been exposed to covid-19. Related Data Home Medications Medication Instructions Recorded Confirmed No Known Home Medications 06/11/23 07/04/23 Allergies Allergy/AdvReac Type Severity Reaction Status Date / Time allopurinol AdvReac Mild chest pain Verified 06/11/23 10:17 Worker's Comp Is this a Worker's Comp case?: No [facility] Disclaimer: The information contained in this section may have been updated after the patient was seen, as this information can be updated by other users. Social History Smoking Status: Current every day smoker tobacco type: e-cigarettes and smokeless tobacco second hand exposure: Yes alcohol intake: never substance use type: denies use current occupational status: other Travel in the last 8 weeks: None housing: house ROS Obtained: Yes All systems reviewed & no additional complaints except as documented Constitutional Constitutional: Reports poor appetite Eyes Eyes: Reports system reviewed and no additional complaints, except as documented ENT Ears, Nose, Mouth, and Throat: Reports as per HPI Cardiovascular Cardiovascular: Reports system reviewed and no additional complaints, except as documented and Denies chest pain Respiratory Respiratory: Denies shortness of breath, Reports chest congestion, Reports cough, Denies stridor and Denies wheezing Gastrointestinal Gastrointestingal: Reports system reviewed and no additional complaints, except as documented; Denies abdominal pain, diarrhea or vomiting Musculoskeletal Musculoskeletal: Reports system reviewed and no additional complaints, except as documented and Denies arthralgias Integumentary/Breasts Skin/Breast: Reports system reviewed and no additional complaints, except as documented and Denies rash Neurologic Neurologic: Denies paresthesias Allergic/Immunologic Allergic/Immunologic: Denies wheezing Physical Exam General General appearance: alert and in no apparent distress Eye Eye exam: Present normal appearance, PERRL and EOMI ENT ENT exam: Present mucous membranes moist and normal external ear exam Expanded ENT Exam External ear exam: Present normal external inspection TM/Canal exam: Bilateral TM: erythema and bulging Nose exam: Absent sinus tenderness Nasal speculum exam: Bilateral: normal Mouth exam: Present normal external inspection; Absent drooling Teeth exam: Present normal inspection Throat exam: Present tonsillar erythema and tonsillomegaly Neck Neck exam: Present normal inspection, full ROM and trachea midline; Absent tenderness, lymphadenopathy or thyromegaly Chest Chest inspection: Present normal inspection and symmetric chest wall rise; Absent tenderness or rash Respiratory Respiratory exam: Present normal lung sounds bilaterally; Absent respiratory distress, wheezes, stridor or accessory muscle use Cardiovascular Cardiovascular exam: Present regular rate, normal rhythm and normal heart sounds Abdominal Exam Abdominal exam: Present soft; Absent distention, tenderness, guarding, rebound or rigidity Extremities Exam Extremities exam: Present normal inspection, full ROM and normal capillary refill; Absent tenderness or calf tenderness Back Exam Back exam: Present normal inspection and full ROM; Absent tenderness Neurological Exam Neurological exam: Present alert and oriented X3 Psychiatric Psychiatric exam: Present normal affect and normal mood Skin Skin exam: Present warm, dry, intact and normal color Lymphatic Lymphatic Findings: no adenopathy Medical Decision Making Medical Records Medical records reviewed: No I reviewed the patient's medical records. Dylon Inquiry Pt receiving controlled substance: No Vital Signs: 07/04/23 15:10 Temperature 97.7 F Temperature Source Oral Pulse Rate [Left Brachial] 73 Respiratory Rate 20 Blood Pressure [Left Arm] 136/89 Blood Pressure Mean [Left Arm] 104 Blood Pressure Source [Left Arm] Automatic Cuff Blood Pressure Position [Left Arm] Sitting 02 Sat by Pulse Oximetry 99 Oxygen Delivery Method Room Air Orders (Tests/Meds): ORDERS Category Date Time Status Covid-19 Nasal PCR ([facility]) Routine Lab 07/04/23 15:10 Ordered Radiology Data #1: Image(s): Chest Image Reviewed: Yes I reviewed the patient's radiology image and Yes I have reviewed radiologist's interpretation Preliminary Findings: No Infiltrates Seen PROCEDURE INFORMATION: Exam: XR Chest Exam date and time: 07/04/2023 4:25 PM Age: 34 years old Clinical indication: Cough; Additional info: Cough x 4 weeks, congestion. Former smoker for 2 yrs TECHNIQUE: Imaging protocol: Radiologic exam of the chest. Views: 2 views. COMPARISON: CT ABDOMEN PELVIS W CON 01/17/2022 12:09 PM FINDINGS: Lungs: Unremarkable. No consolidation. Pleural spaces: Unremarkable. No pleural effusion. No pneumothorax. Heart/Mediastinum: Unremarkable. No cardiomegaly. Bones/joints: Unremarkable. IMPRESSION: No acute findings.
[2023-07-04 16:05] VITALS: BP 136/89; PULSE 73; RESP 20; TEMP 36.5; O2SAT 99
== END 2023-07-04 16:12 | disposition home or self-care (01) ==
PROVIDERS: Emergency Provider Nurse Practitioner Family; PCP Physician Assistant
DX: U07.1 COVID-19 (principal); R50.9 Fever, unspecified; R53.81 Other malaise; F17.290 Nicotine dependence, other tobacco product, uncomplicated
CPT/HCPCS: 87635; 99212; 99214; G0463